=== PATIENT | male | born 1970 | race Caucasian/White ===

== ENCOUNTER → 2016-11-30 | Outpatient (CLI) | payer BC ==
[~2016-11-30] MED LIST: ALLO100T PO; LISI-461 PO; LISIPOW PO; PRLSR20 PO
--- NOTE | 2016-11-30 09:08 | DIAGNOSTIC IMAGING REPORT ---
ABDOMINAL WALL ULTRASOUND. CLINICAL HISTORY: Right lower quadrant pain. COMPARISON STUDY: No previous studies for comparison. FINDINGS: There is a 21 x 18 x 10 mm subcutaneous right lower quadrant abdominal wall mass which is isoechoic to adjacent fat. 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 IMPRESSION: 21 x 18 x 10 mm right lower quadrant subcutaneous mass, with imaging characteristics suggestive of a lipoma Electronically signed by: Camron Pinzon M.D. 11/30/2016 9:06 AM Dictated Date/Time: 11/30/2016 9:05 AM
== END | disposition home or self-care (01) ==
LOC: C.ULTRBC 08:41
PROVIDERS: ATTEND Nurse Practitioner Family
DX: R19.00 Intra-abdominal and pelvic swelling, mass and lump, unspecified site (principal)

== ENCOUNTER → 2016-12-04 | Outpatient (CLI) | payer BC ==
[~2016-12-04] MED LIST changes: +OPTIRAY 320 IV PRN
--- NOTE | 2016-12-04 17:16 | DIAGNOSTIC IMAGING REPORT ---
CT OF THE ABDOMEN AND PELVIS WITH CONTRAST CLINICAL HISTORY: Right lower quadrant pain. Leukocytosis. COMPARISON STUDY: Abdominal ultrasound July 11, 2013 and November 30, 2016. TECHNIQUE: Following IV administration of 115 mL of Optiray-320, axial images of the abdomen and pelvis were obtained from the lung bases to the proximal femurs. Images were reviewed in the axial, sagittal, and coronal planes. IV contrast was administered without complication. Oral contrast was administered. CT DOSE: 1050.10 mGycm FINDINGS: The liver, spleen, adrenal glands, kidneys and pancreas are normal. There is no biliary or pancreatic ductal dilatation. There is no hydronephrosis. There is no evidence for a bowel obstruction. The appendix is normal. No ascites is present. There is no lymphadenopathy. There are no suspicious skeletal lesions. IMPRESSION: No acute process within the abdomen or pelvis. Normal appendix. Electronically signed by: Samuel Ahn M.D. 12/04/2016 5:14 PM Dictated Date/Time: 12/04/2016 5:10 PM
== END | disposition home or self-care (01) ==
LOC: C.CTS 14:13
PROVIDERS: ATTEND Nurse Practitioner Family
DX: R10.31 Right lower quadrant pain (principal); D72.829 Elevated white blood cell count, unspecified

== ENCOUNTER 2016-12-29 00:07 | Emergency (ER) | payer BC ==
[~2016-12-29] VITALS: Ht 172.7 cm; Wt 105.3 kg
[~2016-12-29 00:07] MED LIST changes: -ALLO100T PO; -LISI-461 PO; -OPTIRAY 320 IV PRN; -PRLSR20 PO
[2016-12-29 00:18] VITALS: TEMP 36.5; Ht 172.7 cm; Wt 105.3 kg
[2016-12-29 00:25] VITALS: O2SAT 96
[2016-12-29] MEDS ORDERED: SODIUM CHLORIDE 0.9% 1000ML 1,000 ML IV ONE (00:45)
[2016-12-29 00:46] LABS: BASO % 0.4 %; BASO ABS # 0.04 K/uL (0-0.2); COMPLETE YES; EOS % 2.1 %; IG% 0.4 %; LYMPH % 22.1 %; LYMPH ABS # 2.04 K/uL (1.2-3.4); MEAN CORPUSCULAR HGB CONC 32.6 g/dl (32-36); MEAN PLATELET VOLUME 10.8 fL (7.4-10.4); MONO % 6.9 %; NEUT % 68.1 %; PLATELET COUNT 223 K/uL (130-400); RED BLOOD COUNT 5.35 M/uL (4.7-6.1); WHITE BLOOD COUNT 9.23 K/uL (4.8-10.8)
[2016-12-29 01:04] LABS: PARTIAL THROMBOPLASTIN RATIO 1.1; PROTHROMBIN TIME (PATIENT) 10.2 SECONDS (9.0-12.0)
[2016-12-29 01:10] LABS: BUN/CREATININE RATIO 11.4 (10-20); CALCIUM 8.7 mg/dl (8.5-10.1); CREATININE 1.1 mg/dl (0.60-1.40); MAGNESIUM 2.2 mg/dl (1.8-2.4); POTASSIUM 3.5 mmol/L (3.5-5.1)
[2016-12-29] MEDS ORDERED: LISI-461 PO (01:19)
[2016-12-29] MEDS ORDERED: PRLSR20 PO (01:19)
[2016-12-29] MEDS ORDERED: ALLO100T PO (01:19)
[2016-12-29 01:21] LABS: ALB/GLOB RATIO 1.1 (0.9-2); THYROID STIMULATING HORMONE 2.97 uIu/ml (0.300-4.500)
[2016-12-29 01:31] LABS: URINE APPEARANCE CLEAR (CLEAR); URINE BILIRUBIN NEG (NEG); URINE COLOR YELLOW; URINE NITRITE NEG (NEG); URINE SPECIFIC GRAVITY 1.012 (1.000-1.030); UROBILINOGEN POS (NEG); ZZUR CULT IF INDIC CLEAN CATCH NO
[2016-12-29 01:33] LABS: MANUAL MICROSCOPIC REQUIRED? NO; REVIEW REQ? NO
[2016-12-29 01:35] LABS: LYME DISEASE AB IGG NEG (NEG); LYME DISEASE AB IGM NEG (NEG)
[2016-12-29 03:31] VITALS: BP 121/76
[2016-12-29 03:36] VITALS: PULSE 67; O2SAT 96
--- NOTE | 2016-12-29 07:29 | DIAGNOSTIC IMAGING REPORT ---
TWO VIEW CHEST CLINICAL HISTORY: Palpitations. Hypertension. FINDINGS: PA and lateral chest radiographs are compared to study dated 10/22/2014 and correlated with chest CT dated 10/30/2014. The heart is top normal for projection. The mediastinal contour is within normal limits. There is mild chronic elevation of the right hemidiaphragm. No airspace consolidation or pleural effusion is identified. There is no pneumothorax. The bony thorax appears intact. IMPRESSION: No active disease in the chest. Electronically signed by: Alessio Haines M.D. 12/29/2016 7:27 AM Dictated Date/Time: 12/29/2016 7:26 AM
--- NOTE | 2016-12-30 00:14 | EMERGENCY ROOM VISIT NOTE ---
History First contact with patient: 00:22 Chief Complaint: HYPERTENSION Stated Complaint: HBP,ELEVATED PULSE History of Present Illness The patient is a 46 year old male who presents to the Emergency Room with complaints of palpitations that began when he tried to lay down for sleep tonight. The patient states that he has had similar episodes twice in the past 3 nights. He checked his blood pressure at home and it was 150/100. He states that his pulse rate was elevated in the 110s. The patient did not have chest pain, chest tightness, or shortness of breath with these events. He states that his episode tonight occurred about 2 hours ago and lasted for about 30 minutes. He does not have a history of cardiac disease. He is not diabetic. He rates his current discomfort a /10. Review of Systems More than 10 systems were reviewed and otherwise negative with the exception of history of present illness. 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 NKA (Allergy, Unknown, 03/11/04) Physical Exam Vital Signs Date Time Temp Pulse Resp B/P Pulse Ox O2 Delivery O2 Flow Rate FiO2 12/29/16 03:36 67 24 96 12/29/16 03:31 121/76 12/29/16 03:06 68 17 95 12/29/16 03:01 129/75 12/29/16 02:36 67 19 96 12/29/16 02:31 126/78 12/29/16 02:06 71 18 96 12/29/16 02:01 130/78 12/29/16 01:36 72 21 97 12/29/16 01:31 127/86 12/29/16 01:01 124/85 12/29/16 00:37 75 97 12/29/16 00:32 83 12/29/16 00:31 139/100 12/29/16 00:29 146/91 12/29/16 00:25 96 Room Air 12/29/16 00:18 36.5 86 18 152/97 100 Room Air Pain Rating (0-10): 0 Physical Exam VITALS: Vitals are noted on the nurse's note and reviewed by myself. Vital signs stable. GENERAL: Well-developed, well-nourished, white male, who is in no acute distress and resting comfortably. Patient is cooperative with the examination. HEAD: Normocephalic atraumatic. EARS: External ear normal. External auditory canals clear, tympanic membranes pearly lu without erythema or effusion bilaterally. EYES: Pupils equal round and reactive to light and accommodation. Conjunctivae without injection, sclerae without icterus. Extraocular movements intact. NOSE: Patent, turbinates without inflammation or discharge. MOUTH: Mucous membranes moist. Tonsils are not enlarged. Pharynx without erythema, blood, or exudate. Uvula midline. Airway patent. NECK: Supple without nuchal rigidity. No lymphadenopathy. No thyromegaly. Cervical spine is nontender. HEART: Regular rate and rhythm without murmurs gallops or rubs. LUNGS: Clear to auscultation bilaterally without wheezes, rales or rhonchi. No retractions or accessory muscle use. Medical Decision & Procedures ER Provider Diagnostic Interpretation: TWO VIEW CHEST CLINICAL HISTORY: Palpitations. Hypertension. FINDINGS: PA and lateral chest radiographs are compared to study dated 10/22/2014 and correlated with chest CT dated 10/30/2014. The heart is top normal for projection. The mediastinal contour is within normal limits. There is mild chronic elevation of the right hemidiaphragm. No airspace consolidation or pleural effusion is identified. There is no pneumothorax. The bony thorax appears intact. IMPRESSION: No active disease in the chest. Laboratory Results 12/29/16 00:30 Red Blood Count 5.35, Mean Corpuscular Volume 86.0, Mean Corpuscular Hemoglobin 28.0, Mean Corpuscular Hemoglobin Concent 32.6, Mean Platelet Volume 10.8, Neutrophils (%) (Auto) 68.1, Lymphocytes (%) (Auto) 22.1, Monocytes (%) (Auto) 6.9, Eosinophils (%) (Auto) 2.1, Basophils (%) (Auto) 0.4, Neutrophils # (Auto) 6.28, Lymphocytes # (Auto) 2.04, Monocytes # (Auto) 0.64, Eosinophils # (Auto) 0.19, Basophils # (Auto) 0.04 12/29/16 00:30 Test 12/29/16 00:30 12/29/16 00:39 12/29/16 01:15 White Blood Count 9.23 K/uL (4.8-10.8) Red Blood Count 5.35 M/uL (4.7-6.1) Hemoglobin 15.0 g/dL (14.0-18.0) Hematocrit 46.0 % (42-52) Mean Corpuscular Volume 86.0 fL (80-100) Mean Corpuscular Hemoglobin 28.0 pg (25-34) Mean Corpuscular Hemoglobin Concent 32.6 g/dl (32-36) Platelet Count 223 K/uL (130-400) Mean Platelet Volume 10.8 fL (7.4-10.4) Neutrophils (%) (Auto) 68.1 % Lymphocytes (%) (Auto) 22.1 % Monocytes (%) (Auto) 6.9 % Eosinophils (%) (Auto) 2.1 % Basophils (%) (Auto) 0.4 % Neutrophils # (Auto) 6.28 K/uL (1.4-6.5) Lymphocytes # (Auto) 2.04 K/uL (1.2-3.4) Monocytes # (Auto) 0.64 K/uL (0.11-0.59) Eosinophils # (Auto) 0.19 K/uL (0-0.5) Basophils # (Auto) 0.04 K/uL (0-0.2) RDW Standard Deviation 41.4 fL (36.4-46.3) RDW Coefficient of Variation 13.1 % (11.5-14.5) Immature Granulocyte % (Auto) 0.4 % Immature Granulocyte # (Auto) 0.04 K/uL (0.00-0.02) Prothrombin Time 10.2 SECONDS (9.0-12.0) Prothromb Time International Ratio 1.0 (0.9-1.1) Activated Partial Thromboplast Time 27.5 SECONDS (21.0-31.0) Partial Thromboplastin Ratio 1.1 Anion Gap 8.0 mmol/L (3-11) Est Creatinine Clear Calc Drug Dose 100.8 ml/min Estimated GFR () 94.1 Estimated GFR (Non- 81.2 BUN/Creatinine Ratio 11.4 (10-20) Calcium Level 8.7 mg/dl (8.5-10.1) Magnesium Level 2.2 mg/dl (1.8-2.4) Total Bilirubin 0.6 mg/dl (0.2-1) Aspartate Amino Transf (AST/SGOT) 11 U/L (15-37) Alanine Aminotransferase (ALT/SGPT) 23 U/L (12-78) Alkaline Phosphatase 63 U/L (45-117) Total Protein 7.2 gm/dl (6.4-8.2) Albumin 3.8 gm/dl (3.4-5.0) Globulin 3.4 gm/dl (2.5-4.0) Albumin/Globulin Ratio 1.1 (0.9-2) Thyroid Stimulating Hormone (TSH) 2.970 uIu/ml (0.300-4.500) Lyme Disease IgG Antibody NEG (NEG) Lyme Disease IgM Antibody NEG (NEG) Bedside D-Dimer 226 ng/mlFEU (0-450) Bedside Troponin I 0.000 ng/ml (0-0.045) Urine Color YELLOW Urine Appearance CLEAR (CLEAR) Urine pH 6.0 (4.5-7.5) Urine Specific [place] 1.012 (1.000-1.030) Urine Protein NEG (NEG) Urine Glucose (UA) NEG (NEG) Urine Ketones NEG (NEG) Urine Occult Blood NEG (NEG) Urine Nitrite NEG (NEG) Urine Bilirubin NEG (NEG) Urine Urobilinogen POS (NEG) Urine Leukocyte Esterase NEG (NEG) Medications Administered Medications (Trade) Dose Ordered Sig/Gamaliel Route Start Time Stop Time Status Last Admin Dose Admin Sodium Chloride (Nss 1000ml) 1,000 ml @ 999 mls/hr Q1H1M ONCE IV 12/29/16 00:45 12/29/16 01:45 DC 12/29/16 00:44 999 MLS/HR ECG Change: Normal sinus rhythm @79bpm Normal ECG When compared with ECG of 02-JAN-2005 20:17, No significant change was found Confirmed by JOSE GOINS ([id number]) on 12/29/2016 1:06:01 PM ED Course Physical exam and history were performed. Nursing notes and EMR were reviewed. Patient appears to have palpitations to the last 3 evenings when trying to go to bed. The patient does not appear toxic on examination. IV access was established and labs were obtained. EKG is as above. Chest x-ray was performed. The patient was placed on the vehicle monitor technician. The patient's blood work is as above and was reviewed. He does not have the sequelae elevated white blood cell count from this anemia, bandemia, or significant electrolyte imbalance. Lipase and transaminases are nondiagnostic. Troponin and d-dimer 1 are both negative. Chest x-ray does not show acute findings. Urine is without evidence of infection and the patient remained in normal sinus rhythm on the vehicle monitor technician. Overall the patient was reevaluated multiple times with course of his stay. He remained in stable condition without deterioration of his symptoms. I discussed options of care with patient, and overall he appears stable for discharge home. His symptoms of palpitations may require outpatient Holter or event monitoring in the future. This can be facilitated through his primary care physician or specialist. The patient was certainly invited back to the ER with any new, worsening, or concerning symptoms. He was pleased with this plan and voiced understanding. He rated his discomfort a 0/10 at the time of departure. The chart was completed utilizing [employer] Speech Voice Recognition Software. Grammatical errors, random word insertions, pronoun errors, and incomplete sentences are an occasional consequence of this system due to software limitations, ambient noise, and hardware issues. Any formal questions or concerns about the content, text, or information contained within the body of this dictation should be directly addressed to the provider for clarification. . Medical Decision Differential diagnosis includes, but is not limited to: Myocardial infarction, dysrhythmia, pericarditis, pneumothorax, aortic aneurysm/dissection, DVT/PE, anxiety, GERD, PUD, electrolyte imbalance, thyroid disorder, pneumonia, bronchitis, pancreatitis, and others Impression Primary Impression: Intermittent palpitations Departure Information Dispostion Home / Self-Care Condition [employer] HOME CARE DOCUMENTATION FORM, IMPORTANT VISIT INFORMATION Patient Instructions My [facility] Additional Instructions You were seen and evaluated today on an emergency basis only. This is not a substitute for, or an effort to provide, complete comprehensive medical care. It is not possible to recognize and treat all injuries or illnesses in a single emergency department visit. For this reason it is recommended that you followup with your primary care physician's office this week for ongoing care and evaluation. Call in the morning to schedule appointment. Let them know you were seen in the emergency department. Drink plenty fluids and remain well hydrated. Avoid substances such as caffeine, nicotine, and alcohol as these can cause these symptoms do occur. You are welcome to return to the emergency department anytime with new, worsening, or concerning symptoms.
== END 2016-12-29 03:50 | disposition home or self-care (01) ==
LOC: C.EDB 00:08 → C.EDA 03:50
DX: R00.2 Palpitations (principal); K21.9 Gastro-esophageal reflux disease without esophagitis; Z80.9 Family history of malignant neoplasm, unspecified; Z82.49 Family history of ischemic heart disease and other diseases of the circulatory system; Z79.899 Other long term (current) drug therapy

== ENCOUNTER 2021-01-26 11:00 | Inpatient (IN) ==
[2021-01-26] MEDS ORDERED: SODIUM CHLORIDE 0.9% 1000ML 1,000 ML IV ONE ×2 (12:22→14:05)
[2021-01-26] MEDS ORDERED: ONDANSETRON INJ 2 MG/ML 2 ML VIAL IV STA (12:22)
[2021-01-26 12:37] LABS: Basophils # (auto) 0.02 K/uL (0-0.2); Basophils % (auto) 0.1 %; Eosinophils # (auto) 0.05 K/uL (0-0.5); Eosinophils % (auto) 0.3 %; Hematocrit (blood only) 45.3 % (42-52); Hemoglobin 15.2 g/dL (14.0-18.0); Immature Granulocytes # (auto) 0.08 K/uL (0.00-0.02); Immature Granulocytes % (auto) 0.4 %; Lymphocytes # (auto) 1.22 K/uL (1.2-3.4); Lymphocytes % (auto) 6.7 %; Mean Corpuscular Hemoglobin 29.4 pg (25-34); Mean Corpuscular Hgb Conc 33.6 g/dL (32-36); Mean Corpuscular Volume 87.6 fL (80-100); Mean Platelet Volume 11.5 fL (7.4-10.4); Monocytes # (auto) 1.07 K/uL (0.11-0.59); Monocytes % (auto) 5.9 %; Neutrophils % (auto) 86.6 %; Platelet Count 277 K/uL (130-400); RDW Coefficient of Variation 13.2 % (11.5-14.5); RDW Standard Deviation 42.8 fL (36.4-46.3); Red Blood Count 5.17 M/uL (4.7-6.1); White Blood Count 18.14 K/uL (4.8-10.8)
[2021-01-26 12:48] LABS: Albumin Level 3.8 gm/dl (3.4-5.0); BUN Creatinine Ratio 12.3 (10-20); Calcium 9.4 mg/dl (8.5-10.1); Creatinine Clr Calc Pharmacy 128.5 ml/min; Est GFR (African American) 121.8 ml/min; Est GFR (Non-African American) 105.1 ml/min; Potassium 3.8 mmol/L (3.5-5.1)
[2021-01-26 12:50] LABS: Albumin Globulin Ratio 0.9 (0.9-2); Bilirubin,Total 1.4 mg/dl (0.2-1); Globulin 4.2 gm/dl (2.5-4.0)
[2021-01-26] MEDS ORDERED: OPTIRAY 320 100ml IV ONE (13:04)
--- NOTE | 2021-01-26 13:35 | CT Scan Report ---
ABDOMEN AND PELVIS CT WITH IV CONTRAST CT DOSE: 1433.85 mGy.cm HISTORY: Pt c/o diffuse abd pain TECHNIQUE: Multiaxial CT images of the abdomen and pelvis were performed following the use of intrave nous contrast. A dose lowering technique was utilized adhering to the principles of ALARA. COMPARISON STUDY: Abdomen and pelvis CT 12/04/2016. FINDINGS: The lung bases are clear. No pneumoperitoneum. No pneumatosis. Mild hepatic steatosis. The main portal vein is patent. The gallbladder, spleen, adrenal glands, pancreas, and kidneys are unrema rkable. No hydronephrosis. Mild bilateral perinephric edema. This is likely chronic. No retroperitone al lymphadenopathy. Normal caliber abdominal aorta. No pelvic free fluid. The bladder is unremarkable . A few colonic diverticula. No evidence for acute diverticulitis. Normal appendix. Dilated and fluid -filled stomach and small bowel to the level of the distal ileum where there is smooth tapering of th e bowel to the decompressed ileal loops. The distal ileal loops may be mildly thickened. This is best seen within the right lower quadrant on image 288. Therefore, these findings favor a bowel obstructi on possibly secondary to a nonspecific ileitis. IMPRESSION: 1. Dilated and fluid-filled loops of stomach and small bowel to the level of the ileum where there is smooth tapering at a few mildly thickened loops of ileum. This likely accounts for the transition po int of the small bowel obstruction. This may be secondary to an ileitis. This may represent an inflam matory infectious process. 2. Normal appendix. 3. Mild hepatic steatosis. ACT 112: Negative or not required by law. Electronically signed by: Adonay Bergeron M.D. 01/26/2021 1:34 PM
[2021-01-26 14:07] LABS: Appearance Urine Clear (Clear); Bilirubin Urine Negative (Negative); Blood Urine Negative (Negative); Color Urine Yellow; Glucose Urine UA Negative (Negative); Ketones Urine Trace (Negative); Leukocyte Esterase Urine Negative (Negative); Nitrite Urine Negative (Negative); Protein Urine Negative (Negative); Specific Gravity Urine 1.023 (1.000-1.030); Urobilinogen Urine Negative (Negative); pH Urine 7.5 (4.5-7.5)
[2021-01-26] MEDS ORDERED: PIPERACILL/TAZOBAC CONSULT ACTIVE PRN ×2 (14:43→16:56)
[2021-01-26] MEDS ORDERED: DAPTOmycin 500 MG in SYRINGE 0 ML IV ONE (14:43)
[2021-01-26] MEDS ORDERED: PIPERACILLIN/TAZOBACTAM 4.5 GM/120 ML BAG IV ONE (14:43)
[2021-01-26 15:18] LABS: C Reactive Protein 6.68 mg/dl (0-0.29)
[2021-01-26] MEDS ORDERED: LACTATED RINGER'S 1,000 ML IV SCH (15:30)
--- NOTE | 2021-01-26 15:33 | History & Physical Report ---
Date of Service January 26, 2021 Assessment & Plan (1) Leukocytosis: As per HPI- see heme onc workup from 2009 - Patient with neutrophil predominance- NLR- 15:1 - will start on Zosyn 3.375 GM IV q8 - Received 1 dose of Daptomycin in the EMD - Afebrile, negative lactate, CRP pending (2) SBO (small bowel obstruction): SBO no abdominal surgical history other than lipoma removal - With vomiting- lactate as above - CT abdomen /pelvis with IV contrast performed - ABDOMEN AND PELVIS CT WITH IV CONTRAST CT DOSE: 1433.85 mGy.cm 1. Dilated and fluid-filled loops of stomach and small bowel to the level of the ileum where there is smooth tapering at a few mildly thickened loops of ileum. This likely accounts for the transition point of the small bowel obstruction. This may be secondary to an ileitis. This may represent an inflammatory infectious process. 2. Normal appendix. 3. Mild hepatic steatosis - NGT to LIWS- awaiting post placement KUB - General Surgery Consult placed. - LR @ 125ml/hr - Hydromorphone for pain - Zofran for nausea - KUB in the morning Consult GI following acute SBO resolution (3) HTN (hypertension): Hold Lisinopril - Notify if SBP >160 for IV coverage (4) Obesity: BMI 38- cotninue to work through PCP for risk reductions History of Present Illness Primary Care Provider: BENEDICT Hedrick 50 YOM with past medical history of leukocytosis, myalgias, chronic abdominal pain, constipation, obesity and HTN, Gout. Patient reports that he has daily abdominal discomfort that will come and go in waves as sharp located to his bilateral upper quadrant. This is usually associated with some nausea and no vomiting. The patient endorses his last normal BM was probably last Wednesday [id number]. On he noticed that his abdomen discomfort was becoming more frequent and started with liquid stools. This calmed down a bit on Wednesday, he also started to get a little bit of his appetite back on Wednesday, so he attempted to eat dinner. Patient had increase in abdominal pain that progressed to nausea with vomiting at 2300 last night. He reports that he vomited three times last night, his reports this as brown with undigested food in it. No feculent smell or blood endorsed. In the ER the patient had a CT scan performed that indicated dilated and fluid filled loops of bowel with a transition point at the level of the ileum. Dr. Rodriguez from [facility] spoke with the General Surgeon Dr. Isabel, who requested Naso-Gastric tube decompression, bowel rest, NPO, IVF, broad spectrum antibiotics. He will be admitted to medical floor with the above, continue with the above. KUB in the morning. Lactate level pending. Patient endorses that he has had previous EGD and Colonoscopies performed with biopsies. No records for review. He also reports family history of this abdominal discomfort, constipation, diarrhea that was diagnosed as IBS. He has had his Leukocytosis worked up in the past with unequivocal STEPHANIE and viral panels and flow cytometry workups negative as well. Last GI review available from 2004 but unable to see results at this time. Allergies Allergy/AdvReac Type Severity Reaction Status Date / Time MILK,CATS Allergy Unknown SHORTNESS Uncoded 01/26/21 13:19 OF BREATH Home Medications Medication Instructions Recorded Confirmed Type allopurinol [Zyloprim] 200 mg PO QAM 01/26/21 01/26/21 History cholecalciferol (vitamin D3) 125 mcg PO QDD 01/26/21 01/26/21 History [Vitamin D3] lisinopril [Zestril] 10 mg PO QAM 01/26/21 01/26/21 History Past Med/Surg History Family History Father Coronary heart disease Diabetes Dyslipidemia Heart disease Stroke Irritable bowel Mother Coronary heart disease Diabetes Dyslipidemia Stroke Irritable bowel Other COPD (chronic obstructive pulmonary disease) Social History Smoking Status: Never smoker Second Hand Exposure: No; Do You Dip or Chew Tobacco: No; Tobacco Cessation Education Requested by Patient: No Hx Alcohol Use: Yes Hx Substance Use: No Preferred Language: Uzbek Communication Ability: Effective Painting Manager Required: No Beliefs That Will Affect Care: None Current Living Situation: Spouse Other Information That Helps Us Care for You: No Feels Safe at Home: Yes Safety Concerns: Feels Safe At This Time Assistive Devices: None Review of Systems Review of Systems: REVIEW OF SYSTEMS: Constitutional: No fever, sweats or chills Eyes: No diplopia, no worsening or blurred vision ENT: normal hearing, no trouble swallowing Respiratory: No cough, sputum, dyspnea at rest or on exertion Cardiovascular: No chest pain, tightness or palpitations Abdomen: (+) pain, nausea, vomiting, diarrhea and constipation, (-) blood or mucous stools Musculoskeletal: No joint pain, calf pain, swelling Neurologic: No weakness, numbness/tingling, or balance problems Psychiatric: No anxiety or depression Skin: No rash or itch Physical Exam Physical Exam: PHYSICAL EXAM: General: awake, alert, Head: Normocephalic, atraumatic ENT: PERRL, EOMI, no pharyngeal exudate, mucous membranes moist Neuro: AAO x 3, speech clear and appropriate, strength intact bilaterally 5/5, sensation intact and equal all extremities and dermatomes, no pronator drift Chest: equal rise and fall of the chest, no accessory muscle use, no heaves or thrills, Clear to auscultation, on room air, Cardiac: Regular rate and rhythm, telemetry reviewed, skin warm dry, cap refill <3 seconds, peripheral pules +2 no JVD, no murmur, no JVD, no edema GI: Very hypoactive bowel sounds in lower quadrant, distended, tympanic throughout, tender with deep palpation, no rebound, guarding, not firm : Spontaneously voiding, no pain, no CVA tenderness, Extremities: Normal inspection, no peripheral edema or erythema, calfs nontender to palpation Psych: Normal mood and affect Skin: no rash or erythema Results & Data Results & Data ([facility]) Vital Signs (Past 12 Hours) Vital Signs Temp Pulse Resp BP Pulse Ox 01/26/21 15:01 78 22 97 01/26/21 15:00 75 25 H 138/87 96 01/26/21 14:31 80 20 99 01/26/21 14:30 80 22 140/90 98 01/26/21 14:01 78 22 98 01/26/21 14:00 84 24 134/92 99 01/26/21 13:31 146/90 H 96 01/26/21 13:30 94 01/26/21 13:01 70 20 96 01/26/21 13:00 69 23 121/80 95 01/26/21 12:37 73 20 97 01/26/21 12:31 76 24 94 01/26/21 12:30 77 19 117/80 91 01/26/21 12:01 88 22 91 01/26/21 12:00 84 18 122/81 92 01/26/21 11:33 88 20 94 01/26/21 11:30 86 20 125/83 92 01/26/21 11:06 36.5 C 94 H 20 160/98 H 97 Laboratory Results Abnormal lab results 01/26/21 01/26/21 01/26/21 Range/Units 11:35 11:35 13:54 WBC 18.14 H (4.8-10.8) K/uL MPV 11.5 H (7.4-10.4) fL Neut # (Auto) 15.70 H (1.4-6.5) K/uL [place] # (Auto) 1.07 H (0.11-0.59) K/uL Immature Gran # (Auto) 0.08 H (0.00-0.02) K/uL Sodium 134 L (136-145) mmol/L Glucose 124 H (70-99) mg/dl Total Bilirubin 1.4 H (0.2-1) mg/dl C-Reactive Protein 6.68 H (0-0.29) mg/dl Globulin 4.2 H (2.5-4.0) gm/dl Lipase 69 L (73-393) U/L Urine Ketones Trace H (Negative) Diagnostic Findings Abdomen/Pelvis CT 01/26/21 12:[address] WITH IV CONTRAST CT DOSE: 1433.85 mGy.cm HISTORY: Pt c/o diffuse abd pain TECHNIQUE: Multiaxial CT images of the abdomen and pelvis were performed following the use of intravenous contrast. A dose lowering technique was utilized adhering to the principles of ALARA. COMPARISON STUDY: Abdomen and pelvis CT 12/04/2016. FINDINGS: The lung bases are clear. No pneumoperitoneum. No pneumatosis. Mild hepatic steatosis. The main portal vein is patent. The gallbladder, spleen, adrenal glands, pancreas, and kidneys are unremarkable. No hydronephrosis. Mild bilateral perinephric edema. This is likely chronic. No retroperitoneal lymphadenopathy. Normal caliber abdominal aorta. No pelvic free fluid. The bladder is unremarkable. A few colonic diverticula. No evidence for acute diverticulitis. Normal appendix. Dilated and fluid-filled stomach and small bowel to the level of the distal ileum where there is smooth tapering of the bowel to the decompressed ileal loops. The distal ileal loops may be mildly thickened. This is best seen within the right lower quadrant on image 288. Therefore, these findings favor a bowel obstruction possibly secondary to a nonspecific ileitis. IMPRESSION: 1. Dilated and fluid-filled loops of stomach and small bowel to the level of the ileum where there is smooth tapering at a few mildly thickened loops of ileum. This likely accounts for the transition point of the small bowel obstruction. This may be secondary to an ileitis. This may represent an inflammatory infectious process. 2. Normal appendix. 3. Mild hepatic steatosis. Electronically signed by: Adonay Bergeron M.D. 01/26/2021 1:34 PM Medications Administered Discontinued Medications Sodium Chloride (Nss 1000ml) 1,000 mls @ 999 mls/hr IV .Q1H1M ONE Stop: 01/26/21 13:22 Last Infusion: 01/26/21 13:32 Dose: 0 mls/hr Documented by: [id number] Admin: 01/26/21 12:31 Dose: 999 mls/hr Documented by: [id number] Sodium Chloride (Nss 1000ml) 1,000 mls @ 999 mls/hr IV .Q1H1M ONE Stop: 01/26/21 15:05 Last Infusion: 01/26/21 15:06 Dose: 0 mls/hr Documented by: [id number] Admin: 01/26/21 14:05 Dose: 999 mls/hr Documented by: [id number] Piperacillin Sod/Tazobactam Sod (Zosyn) 4.5 gm in 120 mls @ 240 mls/hr IV NOW ONE Stop: 01/26/21 15:12 Last Admin: 01/26/21 15:16 Dose: 240 mls/hr Documented by: [id number] Daptomycin 500 mg/ Syringe 10 mls @ 5 mls/min IV NOW ONE; Protocol Stop: 01/26/21 14:44 Last Admin: 01/26/21 15:16 Dose: 5 mls/min Documented by: [id number] Ioversol (Optiray 320 100ml) 93 ml IV ONCE ONE Stop: 01/26/21 13:05 Last Admin: 01/26/21 13:04 Dose: 93 ml Documented by: [id number] Ondansetron HCl (Ondansetron Inj 2 Mg/Ml 2 Ml Vial) 4 mg IV NOW STA Stop: 01/26/21 12:23 Last Admin: 01/26/21 12:32 Dose: 4 mg Documented by: [id number] Code Status & VTE Plan Code Status CODE: FULL VTE: SCD's, Heparin 5000 q12, VTE Prophylaxis Plan VTE Prophylaxis will be ordered: Yes Supervising Physician Co-Signing Physician Notes Attending Attestation - Pt seen/examined, chart reviewed, care plan d/w BENEDICT Bernardo. I agree w/ the james components of his documentation. 50yo male with obesity, chronic leukocytosis with previous heme/onc work-up, ?IBS, HTN - presenting with SBO. CT imaging suggests the transition point is in the ileum. Last colonoscopy was in [address] Torres [facility]. Ileum normal at that time. Denies any recent weight loss, BRBPR, mucous per rectum or GI intolerance to foods. However, he reports 20+ years of fluctuating diarrhea/constipation with cramps. PMH, PSH, allergies, meds, sochx, famhx - reviewed VSS, no fever gen - obese, mildly uncomfortable due to distension of abdomen mouth - MM dry heart - RRR, s1 s2 lungs - CTA b/l abd - marked distension, mild generalized tenderness, BS+, tympanic to percussion ext - no edema labs reviewed -- WBC 18 mag/k wnl CT abd/pelvis - reviewed A/P: SBO 2nd to abnormalities in the ileum. ?ileitis on CT? Agree w/ NG tube for decompression, IVF, IV pain meds, anti-emetics, serial labs. Gen surg consultation. Strongly consider GI consultation. differential for ileum abnormality - crohn's?? intestinal lymphoma? other? leukocytosis - chronic, but certainly the acute SBO will contribute. Heriberto Cruz MD PG Care Time/CCT Total # of Minutes Spent Total Time Spent with Patient: Total time spent is greater than 50% in coordination of care (as documented) at patient's floor/unit and/or counseling patient: Coding Level of Care Code 99637 Initial Inpt Care Lvl 2 Diagnoses Leukocytosis D72.829 Leukocytosis type: unspecified SBO (small bowel obstruction) K56.609 HTN (hypertension) I10 Hypertension type: unspecified Obesity E66.9 (1) Leukocytosis Leukocytosis type: unspecified Qualified Code(s): D72.829 - Elevated white blood cell count, unspecified (2) HTN (hypertension) Hypertension type: unspecified Qualified Code(s): I10 - Essential (primary) hypertension
[2021-01-26] MEDS ORDERED: ONDANSETRON INJ 2 MG/ML 2 ML VIAL IV PRN (16:56)
[2021-01-26] MEDS ORDERED: PIPERACILLIN/TAZOBACTAM 3.375 GM in DEXTROSE 5% 100 ML IV SCH (16:56)
[2021-01-26] MEDS: HYDROmorphone INJ 0.5 MG/0.5 ML SYR IV PRN (18:13)
--- NOTE | 2021-01-26 18:54 | XRay Report ---
KUB HISTORY: evaluate NGT placement, Nurse to call COMPARISON: Abdomen and pelvis CT 01/26/2021. FINDINGS: Mildly dilated gas-filled loops of small bowel and stomach are again noted consistent with the patient's small bowel obstruction. Nasogastric tube terminates at the distal esophagus. This shou ld be advanced by approximately 10 cm. No renal calculi. No ureteral calculi. No pneumoperitoneum or pneumatosis. IMPRESSION: The nasogastric tube terminates in the distal esophagus and should be advanced by approximately 10 cm . This finding was called/faxed to the referring physician following dictation. ACT 112: Negative or not required by law. Electronically signed by: Adonay Bergeron M.D. 01/26/2021 6:53 PM
--- NOTE | 2021-01-26 18:56 | Emergency Department Note ---
Impression & Plan SBO (small bowel obstruction), Leukocytosis, Abdominal pain ED Provider Note NAME: ANN MARIE FOSTER AGE: 50 SEX: M : 1970 ARRIVES VIA: Walk-In INFORMANT: Patient, ED PROVIDER(S): Aaron Burr MD CHIEF COMPLAINT: abd pain, vomiting HPI: This 50-year-old male who has a history of small bowel obstructions who presents to the emergency department complaining of abdominal pain as well as vomiting that has been ongoing since . The patient reports any eating or drinking makes the pain worse. He reports nothing makes it better. He has not taken anything for the pain. He describes the pain as an aching sensation with radiation into the back. He denies any fevers or chills. ROS: See above HPI for pertinent positives & negatives. A total of 10 systems reviewed and were otherwise negative. PAST MEDICAL HISTORY: See Below PAST SURGICAL HISTORY: See Below FAMILY HISTORY: See Below SOCIAL HISTORY: See Below HOME MEDICATIONS: See Below ALLERGIES: See Below VITALS: See Below PHYSICAL EXAMINATION: VITAL SIGNS - Vital signs and nursing notes were reviewed. GENERAL - 50-year-old male appearing stated age who is in no acute distress. Communicates well with provider and answers questions appropriately. SKIN - Without rashes. HEAD - NC/AT. EYES - PERRL with EOMI bilaterally. Sclera anicteric. Palpebral conjunctiva pink and moist with no injection noted. EARS - No deformities of external structures noted on gross examination bilaterally. NOSE - Midline and without cyanosis. No epistaxis or purulent drainage noted. Septum midline without deviation or septal hematoma noted. MOUTH/OROPHARYNX - Without perioral cyanosis. Buccal mucosa pink and moist and without leukoplakia. Tongue midline with equal elevation of palate bilaterally. No tonsillar hypertrophy, erythema, or exudates noted. NECK - Neck with FROM. Supple to palpation. No nuchal rigidity. LUNGS - Chest wall symmetric without accessory muscle use, intercostals retractions, or central cyanosis. Normal vesicular breath sounds CTA B/L. No wheezes, rales, or rhonchi appreciated. CARDIAC - RRR with S1/S2. No murmur, rubs, or gallops appreciated. ABDOMEN - Abdominal contour without pulsations or visible masses. BS normoactive all four quadrants. No tenderness, palpable masses, hep atosplenomegaly, or ascites noted. EXTREMITIES - No clubbing or peripheral cyanosis. No pretibial edema present. +3/5 radial, posterior tibial, and dorsalis pedis pulses palpated throughout. +5/5 strength noted in UE/LE bilaterally. NEUROLOGIC - Cranial nerves II through XII grossly intact. Sensory intact to light touch throughout. Patellar reflexes +2/4. PSYCH - A&Ox3 and cooperates fully with examiner. Pt is very pleasant and interacts well with examiner. MEDICAL DECISION MAKING: Patient was seen and evaluated as above in room B7. Review was performed of nursing notes and vital signs. I did review pertinent previous visits and patient history. After obtaining a thorough history and physical examination the above work up was performed. This a 50-year-old male who presents emergency department complaining of abdominal pain. The patient does have an elevation in his white blood cell count which I suspect is from vomiting. CAT scan is concerning for small bowel obstruction. I did recommend an NG tube for the patient. I did discuss the case with the surgery service who asked that the patient be admitted to the medicine service. He was started on broad-spectrum antibiotics. An order was placed for continuous cardiac monitoring. The monitor shows a rate of 58 with Normal Sinus rhythm. The patient was evaluated during a period of high volume and high acuity during the global COVID-19 pandemic, and that diagnosis was suspected/considered upon their initial presentation. Their evaluation, treatment and testing was consistent with current guidelines for patients who present with complaints or symptoms that may be related to COVID-19. Patient was seen while provider was wearing PPE. Triage Nursing notes reviewed. Prior medical records reviewed Vital Signs: reviewed and remarkable for no significant abnormalities Differential diagnosis: Appendicitis, testicular torsion, infections, diverticulitis, UTI, obstruction, mesenteric ischemia, aortic pathology, inflammatory bowel disease, renal colic, PUD, pancreatitis, biliary pathology, hernia, volvulus, constipation, as well as other pathologies. ER treatment provided: See below Diagnostics interpreted by me: ECG: Normal sinus rhythm normal EKG no ST elevation or depression QTC is 459 ventricular rate of 74 EKG is compared to 12/29/2016 no significant changes found. Laboratory studies: As stated above and show below. Imaging studies: See below Consultation(s): Gen Surgery Int Medicine Past Med/Surg History Family History Father Coronary heart disease Diabetes Dyslipidemia Heart disease Stroke Irritable bowel Mother Coronary heart disease Diabetes Dyslipidemia Stroke Irritable bowel Other COPD (chronic obstructive pulmonary disease) Social History Smoking Status: Never smoker Second Hand Exposure: No; Do You Dip or Chew Tobacco: No; Tobacco Cessation Education Requested by Patient: No Hx Alcohol Use: Yes Hx Substance Use: No Preferred Language: Mohawk Communication Ability: Effective Music Librarian Required: No Beliefs That Will Affect Care: None Current Living Situation: Spouse Other Information That Helps Us Care for You: No Feels Safe at Home: Yes Safety Concerns: Feels Safe At This Time Assistive Devices: None Allergies Allergies Allergy/AdvReac Type Severity Reaction Status Date / Time MILK,CATS Allergy Unknown SHORTNESS Uncoded 01/26/21 13:19 OF BREATH Home Meds Home Medications Medication Instructions Recorded Confirmed allopurinol [Zyloprim] 200 mg PO QAM 01/26/21 01/26/21 cholecalciferol (vitamin D3) 125 mcg PO QDD 01/26/21 01/26/21 [Vitamin D3] lisinopril [Zestril] 10 mg PO QAM 01/26/21 01/26/21 Results & Data (ED) Vital Signs Vital Signs - 24 hr 01/26/21 11:06 01/26/21 11:30 01/26/21 11:33 Temperature 36.5 C Temperature Source Temporal Artery Scan Pulse Rate 94 H 86 88 Pulse Rate from SpO2 Sensor 87 89 Pulse Rhythm Respiratory Rate 20 20 20 Respiratory Effort / Characteristics Non-Labored Respiratory Depth Normal Blood Pressure 160/98 H 125/83 Blood Pressure Mean 118 97 Pulse Oximetry 97 92 94 Oxygen Delivery Method Room Air Room Air Room Air Sepsis Recent Fever Within 48 Hours No Sepsis New/Unexplained Change in Mental Status N/A Sepsis Action Taken by Nursing No Action Required 01/26/21 12:00 01/26/21 12:01 01/26/21 12:30 Temperature Temperature Source Pulse Rate 84 88 77 Pulse Rate from SpO2 Sensor 84 87 77 Pulse Rhythm Respiratory Rate 18 22 19 Respiratory Effort / Characteristics Respiratory Depth Blood Pressure 122/81 117/80 Blood Pressure Mean 94 92 Pulse Oximetry 92 91 91 Oxygen Delivery Method Room Air Room Air Sepsis Recent Fever Within 48 Hours Sepsis New/Unexplained Change in Mental Status Sepsis Action Taken by Nursing 01/26/21 12:31 01/26/21 12:37 01/26/21 13:00 Temperature Temperature Source Pulse Rate 76 73 69 Pulse Rate from SpO2 Sensor 77 69 Pulse Rhythm Regular Respiratory Rate 24 20 23 Respiratory Effort / Characteristics Respiratory Depth Blood Pressure 121/80 Blood Pressure Mean 93 Pulse Oximetry 94 97 95 Oxygen Delivery Method Room Air Sepsis Recent Fever Within 48 Hours Sepsis New/Unexplained Change in Mental Status Sepsis Action Taken by Nursing 01/26/21 13:01 01/26/21 13:30 01/26/21 13:31 Temperature Temperature Source Pulse Rate 70 Pulse Rate from SpO2 Sensor 71 82 81 Pulse Rhythm Respiratory Rate 20 Respiratory Effort / Characteristics Respiratory Depth Blood Pressure 146/90 H Blood Pressure Mean 108 Pulse Oximetry 96 94 96 Oxygen Delivery Method Sepsis Recent Fever Within 48 Hours Sepsis New/Unexplained Change in Mental Status Sepsis Action Taken by Nursing 01/26/21 14:00 01/26/21 14:01 01/26/21 14:30 Temperature Temperature Source Pulse Rate 84 78 80 Pulse Rate from SpO2 Sensor 83 79 80 Pulse Rhythm Respiratory Rate 24 22 22 Respiratory Effort / Characteristics Respiratory Depth Blood Pressure 134/92 140/90 Blood Pressure Mean 106 106 Pulse Oximetry 99 98 98 Oxygen Delivery Method Room Air Sepsis Recent Fever Within 48 Hours Sepsis New/Unexplained Change in Mental Status Sepsis Action Taken by Nursing 01/26/21 14:31 01/26/21 15:00 01/26/21 15:01 Temperature Temperature Source Pulse Rate 80 75 78 Pulse Rate from SpO2 Sensor 80 77 78 Pulse Rhythm Respiratory Rate 20 25 H 22 Respiratory Effort / Characteristics Respiratory Depth Blood Pressure 138/87 Blood Pressure Mean 104 Pulse Oximetry 99 96 97 Oxygen Delivery Method Room Air Room Air Room Air Sepsis Recent Fever Within 48 Hours Sepsis New/Unexplained Change in Mental Status Sepsis Action Taken by Nursing Laboratory Data Result diagrams: 01/29/21 05:56 01/29/21 05:56 Lab Results 01/26/21 01/26/21 01/26/21 Range/Units 11:35 11:35 13:54 WBC 18.14 H (4.8-10.8) K/uL RBC 5.17 (4.7-6.1) M/uL Hgb 15.2 (14.0-18.0) g/dL Hct 45.3 (42-52) % MCV 87.6 (80-100) fL MCH 29.4 (25-34) pg MCHC 33.6 (32-36) g/dL RDW Std Deviation 42.8 (36.4-46.3) fL RDW Coeff of Harriet 13.2 (11.5-14.5) % Plt Count 277 (130-400) K/uL MPV 11.5 H (7.4-10.4) fL Immature Gran % (Auto) 0.4 % Neut % (Auto) 86.6 % Lymph % (Auto) 6.7 % [place] % (Auto) 5.9 % Eos % (Auto) 0.3 % Baso % (Auto) 0.1 % Neut # (Auto) 15.70 H (1.4-6.5) K/uL Lymph # (Auto) 1.22 (1.2-3.4) K/uL [place] # (Auto) 1.07 H (0.11-0.59) K/uL Eos # (Auto) 0.05 (0-0.5) K/uL Baso # (Auto) 0.02 (0-0.2) K/uL Immature Gran # (Auto) 0.08 H (0.00-0.02) K/uL Sodium 134 L (136-145) mmol/L Potassium 3.8 (3.5-5.1) mmol/L Chloride 101 (98-107) mmol/L Carbon Dioxide 28 (21-32) mmol/L Anion Gap 5.0 (3-11) BUN 10 (7-18) mg/dl Creatinine 0.81 (0.6-1.4) mg/dl Est Cr Clr Drug Dosing 128.5 ml/min Est GFR ( Amer) 121.8 ml/min Est GFR (Non-Af Amer) 105.1 ml/min BUN/Creatinine Ratio 12.3 (10-20) Glucose 124 H (70-99) mg/dl Lactate (0.4-2.0) mmol/L Calcium 9.4 (8.5-10.1) mg/dl Total Bilirubin 1.4 H (0.2-1) mg/dl AST 18 (15-37) U/L ALT 31 (12-78) U/L Alkaline Phosphatase 53 (45-117) U/L C-Reactive Protein 6.68 H (0-0.29) mg/dl Total Protein 8.0 (6.4-8.2) gm/dl Albumin 3.8 (3.4-5.0) gm/dl Globulin 4.2 H (2.5-4.0) gm/dl Albumin/Globulin Ratio 0.9 (0.9-2) Lipase 69 L (73-393) U/L Urine Color Yellow Urine Appearance Clear (Clear) Urine pH 7.5 (4.5-7.5) Ur Specific [place] 1.023 (1.000-1.030) Urine Protein Negative (Negative) Urine Glucose (UA) Negative (Negative) Urine Ketones Trace H (Negative) Urine Blood Negative (Negative) Urine Nitrite Negative (Negative) Urine Bilirubin Negative (Negative) Urine Urobilinogen Negative (Negative) Ur Leukocyte Esterase Negative (Negative) COVID-19 Eval Order SARS-CoV-2 (PCR) (Negative) 01/26/21 01/26/21 01/26/21 Range/Units 13:55 13:55 15:10 WBC (4.8-10.8) K/uL RBC (4.7-6.1) M/uL Hgb (14.0-18.0) g/dL Hct (42-52) % MCV (80-100) fL MCH (25-34) pg MCHC (32-36) g/dL RDW Std Deviation (36.4-46.3) fL RDW Coeff of Harriet (11.5-14.5) % Plt Count (130-400) K/uL MPV (7.4-10.4) fL Immature Gran % (Auto) % Neut % (Auto) % Lymph % (Auto) % [place] % (Auto) % Eos % (Auto) % Baso % (Auto) % Neut # (Auto) (1.4-6.5) K/uL Lymph # (Auto) (1.2-3.4) K/uL [place] # (Auto) (0.11-0.59) K/uL Eos # (Auto) (0-0.5) K/uL Baso # (Auto) (0-0.2) K/uL Immature Gran # (Auto) (0.00-0.02) K/uL Sodium (136-145) mmol/L Potassium (3.5-5.1) mmol/L Chloride (98-107) mmol/L Carbon Dioxide (21-32) mmol/L Anion Gap (3-11) BUN (7-18) mg/dl Creatinine (0.6-1.4) mg/dl Est Cr Clr Drug Dosing ml/min Est GFR ( Amer) ml/min Est GFR (Non-Af Amer) ml/min BUN/Creatinine Ratio (10-20) Glucose (70-99) mg/dl Lactate 1.1 (0.4-2.0) mmol/L Calcium (8.5-10.1) mg/dl Total Bilirubin (0.2-1) mg/dl AST (15-37) U/L ALT (12-78) U/L Alkaline Phosphatase (45-117) U/L C-Reactive Protein (0-0.29) mg/dl Total Protein (6.4-8.2) gm/dl Albumin (3.4-5.0) gm/dl Globulin (2.5-4.0) gm/dl Albumin/Globulin Ratio (0.9-2) Lipase (73-393) U/L Urine Color Urine Appearance (Clear) Urine pH (4.5-7.5) Ur Specific [place] (1.000-1.030) Urine Protein (Negative) Urine Glucose (UA) (Negative) Urine Ketones (Negative) Urine Blood (Negative) Urine Nitrite (Negative) Urine Bilirubin (Negative) Urine Urobilinogen (Negative) Ur Leukocyte Esterase (Negative) COVID-19 Eval Order Covid19 at [facility] SARS-CoV-2 (PCR) NEGATIVE (Negative) Administered Medications Potassium Chloride/Dextrose/Sod Cl (D5w And 1/2nss + 20meq Kcl) 20 meq in 1,000 mls @ 150 mls/hr IV .Q6H40M [facility] Stop: 02/26/21 15:59 Last Admin: 01/29/21 07:43 Dose: 150 mls/hr Documented by: [id number] Infusion: 01/29/21 07:43 Dose: 150 mls/hr Documented by: [id number] Admin: 01/29/21 01:29 Dose: 150 mls/hr Documented by: [id number] Infusion: 01/29/21 01:17 Dose: 150 mls/hr Documented by: [id number] Admin: 01/28/21 18:36 Dose: 150 mls/hr Documented by: [id number] Infusion: 01/28/21 18:36 Dose: 125 mls/hr Documented by: [id number] Admin: 01/28/21 15:29 Dose: 125 mls/hr Documented by: [id number] Infusion: 01/28/21 11:49 Dose: 125 mls/hr Documented by: [id number] Admin: 01/28/21 08:08 Dose: 125 mls/hr Documented by: [id number] Infusion: 01/28/21 08:08 Dose: 125 mls/hr Documented by: [id number] Admin: 01/28/21 00:25 Dose: 125 mls/hr Documented by: [id number] Infusion: 01/28/21 00:14 Dose: 125 mls/hr Documented by: [id number] Admin: 01/27/21 16:14 Dose: 125 mls/hr Documented by: [id number] Methylprednisolone 20 mg/ (Syringe) 0.32 mls @ 1.5 mls/min IV BID FRANK Stop: 02/27/21 10:14 Last Admin: 01/29/21 07:43 Dose: 1.5 mls/min Documented by: [id number] Admin: 01/28/21 21:20 Dose: 1.5 mls/min Documented by: [id number] Admin: 01/28/21 11:49 Dose: 1.5 mls/min Documented by: [id number] Famotidine 20 mg/ Syringe 5 mls @ 2.5 mls/min IV Q24H FRANK Stop: 02/27/21 16:59 Last Admin: 01/28/21 16:50 Dose: 2.5 mls/min Documented by: [id number] Discontinued Medications Acetaminophen (Acetaminophen 1000 Mg/100 Ml Iv) 1,000 mg IV ONE STA Stop: 01/29/21 12:18 Last Admin: 01/29/21 12:30 Dose: 1,000 mg Documented by: [id number] Heparin Sodium (Porcine) (Heparin Sod 5,000 Unit/0.5 Ml Vial) 5,000 units SQ Q12 FRANK Stop: 02/25/21 20:59 Last Admin: 01/26/21 20:23 Dose: 5,000 units Documented by: [id number] Heparin Sodium (Porcine) (Heparin Sod 5,000 Unit/0.5 Ml Vial) 7,500 units SQ TID FRANK Stop: 02/26/21 08:59 Last Admin: 01/28/21 15:00 Dose: 7,500 units Documented by: [id number] Admin: 01/28/21 08:35 Dose: 7,500 units Documented by: [id number] Admin: 01/27/21 19:53 Dose: 7,500 units Documented by: [id number] Admin: 01/27/21 15:48 Dose: 7,500 units Documented by: [id number] Admin: 01/27/21 11:23 Dose: 7,500 units Documented by: [id number] Hydromorphone HCl (Hydromorphone Inj 0.5 Mg/0.5 Ml Syr) 0.5 mg IV Q4 PRN PRN Reason: Pain Stop: 02/09/21 16:55 Last Admin: 01/28/21 05:13 Dose: 0.5 mg Documented by: [id number] Admin: 01/27/21 19:52 Dose: 0.5 mg Documented by: [id number] Admin: 01/27/21 11:34 Dose: 0.5 mg Documented by: [id number] Admin: 01/27/21 05:54 Dose: 0.5 mg Documented by: [id number] Admin: 01/26/21 18:13 Dose: 0.5 mg Documented by: [id number] Sodium Chloride (Nss 1000ml) 1,000 mls @ 999 mls/hr IV .Q1H1M ONE Stop: 01/26/21 13:22 Last Infusion: 01/26/21 13:32 Dose: 0 mls/hr Documented by: [id number] Admin: 01/26/21 12:31 Dose: 999 mls/hr Documented by: [id number] Sodium Chloride (Nss 1000ml) 1,000 mls @ 999 mls/hr IV .Q1H1M ONE Stop: 01/26/21 15:05 Last Infusion: 01/26/21 15:06 Dose: 0 mls/hr Documented by: [id number] Admin: 01/26/21 14:05 Dose: 999 mls/hr Documented by: [id number] Piperacillin Sod/Tazobactam Sod (Zosyn) 4.5 gm in 120 mls @ 240 mls/hr IV NOW ONE Stop: 01/26/21 15:12 Last Infusion: 01/26/21 16:09 Dose: 0 mls/hr Documented by: [id number] Admin: 01/26/21 15:16 Dose: 240 mls/hr Documented by: [id number] Daptomycin 500 mg/ Syringe 10 mls @ 5 mls/min IV NOW ONE; Protocol Stop: 01/26/21 14:44 Last Admin: 01/26/21 15:16 Dose: 5 mls/min Documented by: [id number] Lactated Ringer's (Lr) 1,000 mls @ 125 mls/hr IV .Q8H FRANK Stop: 02/25/21 15:29 Last Infusion: 01/27/21 00:57 Dose: 0 mls/hr Documented by: [id number] Admin: 01/26/21 16:57 Dose: 125 mls/hr Documented by: [id number] Piperacillin Sod/Tazobactam (Sod 4.5 gm/ Dextrose) 120 mls @ 30 mls/hr IV Q8H FRANK; Protocol Stop: 02/05/21 20:59 Last Infusion: 01/27/21 19:19 Dose: 0 mls/hr Documented by: [id number] Admin: 01/27/21 13:01 Dose: 30 mls/hr Documented by: [id number] Infusion: 01/27/21 10:57 Dose: 30 mls/hr Documented by: [id number] Admin: 01/27/21 04:33 Dose: 30 mls/hr Documented by: [id number] Infusion: 01/27/21 00:23 Dose: 30 mls/hr Documented by: [id number] Admin: 01/26/21 20:23 Dose: 30 mls/hr Documented by: [id number] Sodium Chloride (Nss 1000ml) 1,000 mls @ 125 mls/hr IV .Q8H FRANK Stop: 02/25/21 20:14 Last Infusion: 01/27/21 19:20 Dose: 0 mls/hr Documented by: [id number] Admin: 01/27/21 11:28 Dose: 125 mls/hr Documented by: [id number] Infusion: 01/27/21 11:28 Dose: 125 mls/hr Documented by: [id number] Admin: 01/27/21 04:33 Dose: 125 mls/hr Documented by: [id number] Infusion: 01/27/21 04:23 Dose: 125 mls/hr Documented by: [id number] Admin: 01/26/21 20:23 Dose: 125 mls/hr Documented by: [id number] Ioversol (Optiray 320 100ml) 93 ml IV ONCE ONE Stop: 01/26/21 13:05 Last Admin: 01/26/21 13:04 Dose: 93 ml Documented by: [id number] Ondansetron HCl (Ondansetron Inj 2 Mg/Ml 2 Ml Vial) 4 mg IV NOW STA Stop: 01/26/21 12:23 Last Admin: 01/26/21 12:32 Dose: 4 mg Documented by: [id number] Imaging Data Radiologist's Impression: Abdomen/Pelvis CT 01/26/21 12:[address] WITH IV CONTRAST CT DOSE: 1433.85 mGy.cm HISTORY: Pt c/o diffuse abd pain TECHNIQUE: Multiaxial CT images of the abdomen and pelvis were performed following the use of intravenous contrast. A dose lowering technique was utilized adhering to the principles of ALARA. COMPARISON STUDY: Abdomen and pelvis CT 12/04/2016. FINDINGS: The lung bases are clear. No pneumoperitoneum. No pneumatosis. Mild hepatic steatosis. The main portal vein is patent. The gallbladder, spleen, adrenal glands, pancreas, and kidneys are unremarkable. No hydronephrosis. Mild bilateral perinephric edema. This is likely chronic. No retroperitoneal lymphadenopathy. Normal caliber abdominal aorta. No pelvic free fluid. The bladder is unremarkable. A few colonic diverticula. No evidence for acute diverticulitis. Normal appendix. Dilated and fluid-filled stomach and small bowel to the level of the distal ileum where there is smooth tapering of the bowel to the decompressed ileal loops. The distal ileal loops may be mildly thickened. This is best seen within the right lower quadrant on image 288. There fore, these findings favor a bowel obstruction possibly secondary to a nonspecific ileitis. IMPRESSION: 1. Dilated and fluid-filled loops of stomach and small bowel to the level of the ileum where there is smooth tapering at a few mildly thickened loops of ileum. This likely accounts for the transition point of the small bowel obstruction. This may be secondary to an ileitis. This may represent an inflammatory infectious process. 2. Normal appendix. 3. Mild hepatic steatosis. ACT 112: Negative or not required by law. Electronically signed by: Adonay Bergeron M.D. 01/26/2021 1:34 PM Discharge Plan Visit Data Chief Complaint: Abdominal Pain Stated Complaint: BOWEL OBSTRUCTION ED Provider: Aaron Burr Discharge Problem: SBO (small bowel obstruction), Leukocytosis, Abdominal pain Patient Disposition: Admitted As Inpatient Discharge Instructions Interventions: ED Discharge Assessment Last Done: 01/26/21 16:44 Discharge Problem: Leukocytosis Qualifiers: Leukocytosis type: unspecified Qualified Code(s): D72.829 - Elevated white blood cell count, unspecified Abdominal pain Qualifiers: Abdominal location: unspecified location Qualified Code(s): R10.9 - Unspecified abdominal pain
--- NOTE | 2021-01-26 19:25 | Surgery Consultation ---
Date of Consultation January 26, 2021 Assessment & Plan (1) SBO (small bowel obstruction): Patient has been admitted to the hospital in the hospital service and we recommend proceeding in the following manner: Provide analgesics Provide antiemetics Hydration with IV fluids N.p.o. status Gastric decompression with NG tube to low continuous suction Follow serial labs Repeat KUB in the morning Discussed with the patient the most common causes of small bowel obstruction including adhesions as well as hernias. Adhesions is less likely as the patient has not had any prior surgeries and I not palpate any hernias on physical exam. There is question of that patient may have an ileitis on his a CT scan this could be the cause of his small bowel obstruction. Expressed to the patient we will try to get him through this with conservative measures reserving surgery in the event that his small bowel obstruction does not resolve in a reasonable time. We will continue to follow along with the patient is hospitalized History of Present Illness Reason for Consultation: Small bowel obstruction Attending Physician: Heriberto Cruz History of Present Illness This is a 50-year-old male who notes he has a history of chronic abdominal pain. He says for unknown reasons he will get generalized abdominal pain that r adiates across his abdomen without any palliative or provocative factors. He notes that the pain usually last for several hours or even a few days but will self resolve. Patient presented to [facility] [address] emergency department earlier today secondary to 3 days of abdominal pain similar to what is described above. He notes that the pain became more severe and would not resolve as it usually does so he presented to the emergency department. Again the patient notes generalized abdominal pain that radiates across the top of his abdomen. He did have associated nausea vomiting. In addition the patient notes that he had a low-grade fever. Further reports that he did have a bowel movement yesterday but it was mostly liquid bowel movement. He reports that he has been evaluated for celiac, Crohn's disease, and ulcerative colitis via colonoscopy and EGD both these studies he has never found any significant pathology. The patient also notes that he has never had a small bowel obstruction in the past and he has not had any prior abdominal surgeries. Upon presentation to the emergency department the patient did have labs and imaging which I independently reviewed. A CT scan of the abdomen and pelvis showed dilated and fluid-filled loops of the stomach and small bowel extending to the level of the ileum where there is a tapering along with a few mildly thickened loops of ileum that was felt to represent a small bowel obstruction and potentially an ileitis. Patient also had labs were CBC revealed his white blood cell count was 18.1. Hemoglobin, hematocrit, and platelet count were all within the normal range. Chemistry profile showed his sodium is 134. Potassium, BUN, and creatinine were all within the normal range. Lactic acid level checked and was not elevated at level 1.1. Patient's lipase was not elevated. Urinalysis was not indicative of infection and a Covid test was performed and was negative. Because of patient's symptoms admission to the hospital is recommended. He has had an NG tube placed and is just arrived to the floor awaiting to be placed to suction. At the time of my interview he was resting in bed he was in no overt distress. Allergies Allergy/AdvReac Type Severity Reaction Status Date / Time MILK,CATS Allergy Unknown SHORTNESS Uncoded 01/26/21 13:19 OF BREATH Home Medications Medication Instructions Recorded Confirmed Type allopurinol [Zyloprim] 200 mg PO QAM 01/26/21 01/26/21 History cholecalciferol (vitamin D3) 125 mcg PO QDD 01/26/21 01/26/21 History [Vitamin D3] lisinopril [Zestril] 10 mg PO QAM 01/26/21 01/26/21 History Patient History Family History Father Coronary heart disease Diabetes Dyslipidemia Heart disease Stroke Irritable bowel Mother Coronary heart disease Diabetes Dyslipidemia Stroke Irritable bowel Other COPD (chronic obstructive pulmonary disease) Social History Smoking Status: Never smoker Second Hand Exposure: No; Do You Dip or Chew Tobacco: No; Tobacco Cessation Education Requested by Patient: No Hx Alcohol Use: Yes Hx Substance Use: No Preferred Language: Danish Communication Ability: Effective Director Compensation Required: No Beliefs That Will Affect Care: None Current Living Situation: Spouse Other Information That Helps Us Care for You: No Feels Safe at Home: Yes Safety Concerns: Feels Safe At This Time Assistive Devices: None Review of Systems Constitutional: + fever; no chills Eyes: no diplopia Ear, Nose, Mouth, Throat: no ear pain Respiratory: no cough and no dyspnea Cardiovascular: no chest pain Gastrointestinal: + abdominal pain, + nausea and + diarrhea/loose stools Genitourinary: no dysuria Musculoskeletal: no back pain Integumentary: no rash Neurologic: no localized weakness Physical Exam Constitutional: well developed and well nourished; no acute distress Eyes: no conjunctival abnormality ENMT: Ears: no hearing impairment Neck: trachea midline Respiratory: normal respiratory effort, lungs clear to auscultation Cardiovascular: Rate/Rhythm: regular rate and regular rhythm Gastrointestinal (Abdomen): Abdomen is rotund and distended. Bowel sounds are hypoactive. Patient has some pain with deep palpation in a generalized fashion. There is no rebound tenderness or guarding. I do not appreciate any hernias on physical exam. His abdomen is tympanic to percussion. Musculoskeletal: No calf pain Skin: no rashes, warm and dry Neurologic: moves all extremities Psychiatric: A+Ox3, euthymic affect Results & Data ([facility]) Vital Signs (Past 12 Hours) Vital Signs Temp Pulse Pulse Resp BP BP Pulse Ox 01/26/21 17:08 36.9 C 79 18 124/81 98 01/26/21 17:03 36.9 C 79 18 124/81 98 01/26/21 16:01 81 21 98 01/26/21 16:00 85 26 H 138/87 96 01/26/21 15:31 87 26 H 99 01/26/21 15:30 81 26 H 139/96 99 01/26/21 15:01 78 22 97 01/26/21 15:00 75 25 H 138/87 96 01/26/21 14:31 80 20 99 01/26/21 14:30 80 22 140/90 98 01/26/21 14:01 78 22 98 01/26/21 14:00 84 24 134/92 99 01/26/21 13:31 146/90 H 96 01/26/21 13:30 94 01/26/21 13:01 70 20 96 01/26/21 13:00 69 23 121/80 95 01/26/21 12:37 73 20 97 01/26/21 12:31 76 24 94 01/26/21 12:30 77 19 117/80 91 01/26/21 12:01 88 22 91 01/26/21 12:00 84 18 122/81 92 06/20/21 11:33 88 20 94 01/26/21 11:30 86 20 125/83 92 01/26/21 11:06 36.5 C 94 H 20 160/98 H 97 PG Care Time/CCT Total # of Minutes Spent Total Time Spent with Patient: Total time spent is greater than 50% in coordination of care (as documented) at patient's floor/unit and/or counseling patient: Coding Level of Care Code 07387 Inpt Consult Level 5 Diagnoses SBO (small bowel obstruction) K56.609
[2021-01-26] MEDS ORDERED: Nursing to Pharmacy Communication SCH (20:15)
[2021-01-26] MEDS: PIPERACILLIN/TAZOBACTAM 4.5 GM in DEXTROSE 5% 100 ML IV SCH (20:23)
[2021-01-26] MEDS: SODIUM CHLORIDE 0.9% 1000ML 1,000 ML IV SCH (20:23)
[2021-01-26] MEDS ORDERED: HEPARIN SOD 5,000 UNIT/0.5 ML VIAL SQ SCH (21:00)
[2021-01-27] MEDS: PIPERACILLIN/TAZOBACTAM 4.5 GM in DEXTROSE 5% 100 ML IV SCH ×2 (04:33→13:01)
[2021-01-27] MEDS: SODIUM CHLORIDE 0.9% 1000ML 1,000 ML IV SCH ×2 (04:33→11:28)
[2021-01-27] MEDS: HYDROmorphone INJ 0.5 MG/0.5 ML SYR IV PRN ×3 (05:54→19:52)
[2021-01-27 06:54] LABS: Basophils # (auto) 0.03 K/uL (0-0.2); Basophils % (auto) 0.2 %; Eosinophils # (auto) 0.07 K/uL (0-0.5); Eosinophils % (auto) 0.5 %; Hematocrit (blood only) 42.7 % (42-52); Hemoglobin 14.1 g/dL (14.0-18.0); Immature Granulocytes # (auto) 0.03 K/uL (0.00-0.02); Immature Granulocytes % (auto) 0.2 %; Lymphocytes % (auto) 8.9 %; Mean Corpuscular Hemoglobin 29.1 pg (25-34); Monocytes # (auto) 0.97 K/uL (0.11-0.59); Monocytes % (auto) 7.2 %; Neutrophils # (auto) 11.21 K/uL (1.4-6.5); Platelet Count 251 K/uL (130-400); RDW Coefficient of Variation 13.4 % (11.5-14.5); RDW Standard Deviation 43.2 fL (36.4-46.3); Red Blood Count 4.85 M/uL (4.7-6.1); White Blood Count 13.51 K/uL (4.8-10.8)
[2021-01-27 07:31] LABS: BUN Creatinine Ratio 15.3 (10-20); Calcium 8.7 mg/dl (8.5-10.1); Creatinine Clr Calc Pharmacy 129.7 ml/min; Est GFR (African American) 120.6 ml/min; Magnesium 2.2 mg/dl (1.8-2.4); Potassium 3.2 mmol/L (3.5-5.1)
--- NOTE | 2021-01-27 08:45 | XRay Report ---
KUB HISTORY: Follow up study in a patient with small bowel obstruction follow up with SBO COMPARISON: KUB 01/26/2021 FINDINGS: Enteric tube distal tip projects over the proximal gastric lumen. Persistent dilated air-fi lled loops of small bowel measure up to 4.5 cm. No pneumatosis or pneumoperitoneum. No urolith. No ac tejon fracture. Unchanged sclerotic focus of the right iliac bone. Contrast noted within the urinary bl adder lumen. IMPRESSION: 1. Distal tip of enteric tube projects over the proximal stomach. 2. Persistent small bowel obstruction. 3. No pneumoperitoneum. ACT 112: Negative or not required by law. The above report was generated using voice recognition software. It may contain grammatical, syntax o r spelling errors. Electronically signed by: Oliver Cool M.D. 01/27/2021 8:44 AM
--- NOTE | 2021-01-27 09:21 | XRay Report ---
XR KUB/Abdomen 1 view CLINICAL HISTORY: confirm proper placement of NG tube COMPARISON STUDY: January 26, 2021 at 6:25 hours FINDINGS: Fenestrated side-port of the gastric tube is seen at the level of the left hemidiaphragm. Tip is seen within the anatomical region of the stomach. Gas-filled loops of small and large bowel are again seen within upper abdomen. IMPRESSION: 1. Tip of fenestrated side-port is above level of the hemidiaphragm. Advancement approximately 3 to 5 cm recommended. ACT 112: Negative or not required by law. The above report was generated using voice recognition software. It may contain grammatical, syntax o r spelling errors. Electronically signed by: Celia Spann DO 01/27/2021 9:20 AM
--- NOTE | 2021-01-27 09:31 | Surgery Progress Note ---
Date of Service January 27, 2021 Assessment & Plan (1) SBO (small bowel obstruction): clinically most c/w inflammatory bowel/crohn's. will await GI input. ? empirically treat as IBD vs repeat colonoscopy with attempt at terminal ileum bx. no urgent indications for surgical intervention. will continue to follow along. Admission and Anticipated Discharge Date Admission Date: January 26, 2021 Subjective pt feeling better. main complaint is NGT. abdominal distension/pain/nausea all improved. large amount out of NGT ( 4000 cc). pt states he has had chronic abdominal pain for over 20 years. last GI w/u approx 8 years ago. Physical Exam Constitutional: WD/WN, vitals as above no acute distress and not ill appearing Eyes: PERRL, conjunctivae normal, anicteric sclerae EOM intact bilaterally ENMT: external ear and nose normal, oropharynx normal Ears: no hearing impairment Neck: trachea midline, no thyromegaly Respiratory: normal respiratory effort; no respiratory distress and does not use accessory muscles Cardiovascular: Rate/Rhythm: regular rate and regular rhythm Gastrointestinal (Abdomen): abd: soft. mild ttp. no g/r/r. mild distension. Skin: no rashes, warm and dry Psychiatric: Orientation: alert, oriented x 3 and cooperative Results & Data ([facility]) Vital Signs (Past 12 Hours) Vital Signs Temp Pulse Resp BP Pulse Ox 01/27/21 07:09 36.9 C 66 16 124/75 95 01/26/21 22:12 36.9 C 74 18 131/80 94 PG Care Time/CCT Total # of Minutes Spent Total Time Spent with Patient: Total time spent is greater than 50% in coordination of care (as documented) at patient's floor/unit and/or counseling patient: Coding Level of Care Code 27393 Subseq Hosp Care Lvl 3 Diagnoses SBO (small bowel obstruction) K56.609
[2021-01-27] MEDS: HEPARIN SOD 5,000 UNIT/0.5 ML VIAL SQ SCH ×3 (11:23→19:53)
--- NOTE | 2021-01-27 14:59 | Electrocardiogram Report ---
Test Reason : Blood Pressure : / mmHG Vent. Rate : 074 BPM Atrial Rate : 074 BPM P-R Int : 154 ms QRS Dur : 086 ms QT Int : 414 ms P-R-T Axes : 033 015 012 degrees QTc Int : 459 ms Poor data quality, interpretation may be adversely affected Normal sinus rhythm Normal ECG When compared with ECG of 29-DEC-2016 00:27, No significant change was found Confirmed by Raghav Gaming ([id number]) on 01/27/2021 2:59:25 PM Referred By: REFERRED SELF Confirmed By:Raghav Gaming
[2021-01-27] MEDS: D5W AND 1/2NSS + 20MEQ KCL 20 MEQ/1,000 ML BAG IV SCH (16:14)
--- NOTE | 2021-01-27 17:17 | Hospitalist Progress Note ---
Date of Service January 27, 2021 Assessment & Plan (1) SBO (small bowel obstruction): NG tube to low intermittent suction Switch NSS to D5W half NSS + K Cl, may need to increase rate to keep up with substantial gastric fluid loss 4425ml last 24 hours. Appreciate ongoing general surgery management (2) Ileitis: Less likely infective given recurrent nature of his abdominal pain presumably also due to ileitis More likely Crohn's although notably previous workup negative. Multiple alternative etiologies and would consider outpatient video capsule endoscopy if EGD/colonoscopy unremarkable and no surgical specimen taken. No family history of autoimmune conditions. No personal history of of arthropathies or skin rashes to suggest vasculitides. CRP/ESR with AM labs Stool culture Stop IV antibiotics despite improvement in WBC no fever/chills to suggest infective etiology. Consult gastroenterology (3) HTN (hypertension): Hold Lisinopril - Notify if SBP >160 for IV coverage (4) Obesity: BMI 38- continue to work through PCP for risk reductions (5) DVT prophylaxis: Heparin 7500 units SQ TID Admission and Anticipated Discharge Date Admission Date: January 26, 2021 Subjective Abdominal pain much improved, generalized without radiation, severity 2/10. No nausea or vomiting with NG tube. Passing flatus but not yet had a bowel movement. No fevers or chills. Review of Systems Review of Systems: All systems reviewed & are unremarkable except as noted in HPI & below Physical Exam Constitutional: WD/WN, vitals as above Eyes: + anicteric sclerae; normal pupil size Respiratory: normal respiratory effort, lungs clear to auscultation Cardiovascular: RRR, no murmur, no edema Gastrointestinal (Abdomen): Inspection/Auscultation: abdomen normal to inspection and + hypoactive bowel sounds; abdomen not distended Percussion/Palpation: + abdomen tender (Generalized, mild) and abdomen soft; no guarding and abdomen not rigid Musculoskeletal: no cyanosis or clubbing, extremities motor strength 5/5 Skin: no rashes, warm and dry Neurologic: moves all extremities and awake; not confused Psychiatric: A+Ox3, euthymic affect Results & Data Results & Data ([facility]) Vital Signs (Past 12 Hours) Vital Signs Temp Pulse Resp BP Pulse Ox 01/27/21 15:20 37.6 C H 70 16 121/74 94 01/27/21 07:09 36.9 C 66 16 124/75 95 PG Care Time/CCT Total # of Minutes Spent Total Time Spent with Patient: Total time spent is greater than 50% in coordination of care (as documented) at patient's floor/unit and/or counseling patient: Coding Level of Care Code 05165 Subseq Hosp Care Lvl 2 Diagnoses SBO (small bowel obstruction) K56.609 Ileitis K52.9 HTN (hypertension) I10 Hypertension type: unspecified Obesity E66.9 DVT prophylaxis Z29.9 (1) HTN (hypertension) Hypertension type: unspecified Qualified Code(s): I10 - Essential (primary) hypertension
[2021-01-27] MEDS ORDERED: CHLORASEPTIC 1.4% SOLN 180 ML BTL MT PRN (19:53)
[2021-01-28] MEDS: D5W AND 1/2NSS + 20MEQ KCL 20 MEQ/1,000 ML BAG IV SCH ×5 (00:25→18:36)
[2021-01-28] MEDS: HYDROmorphone INJ 0.5 MG/0.5 ML SYR IV PRN (05:13)
[2021-01-28 06:08] LABS: Basophils # (auto) 0.04 K/uL (0-0.2); Basophils % (auto) 0.3 %; Eosinophils % (auto) 2.6 %; Hematocrit (blood only) 43.1 % (42-52); Hemoglobin 14.1 g/dL (14.0-18.0); Immature Granulocytes # (auto) 0.04 K/uL (0.00-0.02); Immature Granulocytes % (auto) 0.3 %; Lymphocytes # (auto) 2.52 K/uL (1.2-3.4); Lymphocytes % (auto) 21.5 %; Mean Corpuscular Hemoglobin 29.6 pg (25-34); Mean Corpuscular Hgb Conc 32.7 g/dL (32-36); Mean Corpuscular Volume 90.5 fL (80-100); Monocytes # (auto) 1.03 K/uL (0.11-0.59); Monocytes % (auto) 8.8 %; Neutrophils # (auto) 7.77 K/uL (1.4-6.5); Neutrophils % (auto) 66.5 %; Platelet Count 243 K/uL (130-400); RDW Coefficient of Variation 13.5 % (11.5-14.5); RDW Standard Deviation 44.8 fL (36.4-46.3); Red Blood Count 4.76 M/uL (4.7-6.1)
[2021-01-28 06:42] LABS: Albumin Globulin Ratio 0.8 (0.9-2); BUN Creatinine Ratio 16.4 (10-20); Bilirubin,Total 0.8 mg/dl (0.2-1); C Reactive Protein 4.68 mg/dl (0-0.29); Calcium 8.3 mg/dl (8.5-10.1); Creatinine Clr Calc Pharmacy 141.6 ml/min; Est GFR (Non-African American) 107.9 ml/min; Globulin 3.6 gm/dl (2.5-4.0); Total Protein 6.6 gm/dl (6.4-8.2)
[2021-01-28 08:34] LABS: Potassium 3.5 mmol/L (3.5-5.1)
[2021-01-28] MEDS: HEPARIN SOD 5,000 UNIT/0.5 ML VIAL SQ SCH ×2 (08:35→15:00)
[2021-01-28 08:39] LABS: Magnesium 2.4 mg/dl (1.8-2.4)
--- NOTE | 2021-01-28 09:53 | Gastrointestinal Consultation ---
Date of Consultation January 28, 2021 Assessment & Plan (1) SBO (small bowel obstruction): (2) Ileitis: Pt is a 50 y.o. male with a history of chronic, intermittent abdominal pain admitted with terminal ileitis and SBO, concerning for Crohn's disease. 1. Continue NPO and NG decompression as persistent obstruction on KUB from yesterday. 2. Start Solu-Medrol 20 mg IV BID. 3. Continue IV Zosyn. 4. Plan for outpatient colonoscopy once obstruction has resolved. 5. Continue supportive care. 6. If no improvement with steroids, may need to reconsider surgical intervention. Thank you for allowing us to participate in the care of this pleasant patient. If you have any questions or concerns, please do not hesitate to contact us. Supervising Physician Co-Signing Physician Notes I personally evaluated the patient and agree with the findings as documented by BENEDICT Antunez Exam: abd: soft, nt, nd History of Present Illness Reason for Consultation: SBO Requesting Physician: Dr. Collado Attending Physician: Heriberto Collado MD History of Present Illness Patient is a pleasant 50 y.o. male with a history of chronic abdominal pain and constipation which he states has been ongoing for the past 15 years. He did have both an upper and lower endoscopy by Dr. Torres which was unremarkable. States he develops sharp and twisting pain in the periumbilical and RLQ regions that wax and wane intermittently. At times, the pains are severe and are associated with n/v. Patient presented to the ER on 01/26/21 after several days of irregular bowel movements and abdominal pain as well as persistent vomiting which was brown and with undigested food. He did undergo a CT a/p with findings of dilated small bowel loops with a discreet transition point at the TI. He has been kept NPO and with NGT decompression which continues to have feculent output. KUB from yesterday with persistent obstruction. General surgery has evaluated the patient and is not considering emergent surgical intervention. Currently, patient rates pain as 2/10 in intensity. No further vomiting. Laboratory testing from this morning reviewed and with a mild leukocytosis. No anemia. CRP 4.68. Denies any outpatient NSAID use. No family history of IBD or GI malignancy. No prior abdominal surgery. Allergies Allergy/AdvReac Type Severity Reaction Status Date / Time MILK,CATS Allergy Unknown SHORTNESS Uncoded 01/26/21 13:19 OF BREATH Home Medications Medication Instructions Recorded Confirmed Type allopurinol [Zyloprim] 200 mg PO QAM 01/26/21 01/26/21 History cholecalciferol (vitamin D3) 125 mcg PO QDD 01/26/21 01/26/21 History [Vitamin D3] lisinopril [Zestril] 10 mg PO QAM 01/26/21 01/26/21 History Patient History Family History Father Coronary heart disease Diabetes Dyslipidemia Heart disease Stroke Irritable bowel Mother Coronary heart disease Diabetes Dyslipidemia Stroke Irritable bowel Other COPD (chronic obstructive pulmonary disease) Social History Smoking Status: Never smoker Second Hand Exposure: No; Do You Dip or Chew Tobacco: No; Tobacco Cessation Education Requested by Patient: No Hx Alcohol Use: Yes Hx Substance Use: No Preferred Language: Czech Communication Ability: Effective Test Designer Required: No Beliefs That Will Affect Care: None Current Living Situation: Spouse Other Information That Helps Us Care for You: No Feels Safe at Home: Yes Safety Concerns: Feels Safe At This Time Assistive Devices: None Review of Systems Review of Systems: All systems reviewed & are unremarkable except as noted in HPI & below Physical Exam Constitutional: WD/WN, vitals as above well developed and well nourished ENMT: NG intact. Respiratory: normal respiratory effort, lungs clear to auscultation Cardiovascular: Rate/Rhythm: regular rate and regular rhythm Gastrointestinal (Abdomen): Inspection/Auscultation: + abdomen distended, normal bowel sounds (LLQ) and + hypoactive bowel sounds (RLQ) Percussion/Palpation: abdomen soft Psychiatric: A+Ox3, euthymic affect Results & Data ([facility]) Vital Signs (Past 12 Hours) Vital Signs Temp Pulse Resp BP Pulse Ox 01/28/21 07:34 37.2 C 58 L 16 110/71 95 01/27/21 22:19 36.9 C 84 16 113/73 96 Laboratory Results Abnormal lab results 01/28/21 01/28/21 01/28/21 Range/Units 05:42 05:42 05:42 WBC 11.70 H (4.8-10.8) K/uL MPV 11.0 H (7.4-10.4) fL Neut # (Auto) 7.77 H (1.4-6.5) K/uL Summers # (Auto) 1.03 H (0.11-0.59) K/uL Immature Gran # (Auto) 0.04 H (0.00-0.02) K/uL ESR 33 H (0-15) mm/hr Carbon Dioxide 33 H (21-32) mmol/L Anion Gap 1.0 L (3-11) Glucose 119 H (70-99) mg/dl Calcium 8.3 L (8.5-10.1) mg/dl Alkaline Phosphatase 39 L (45-117) U/L C-Reactive Protein 4.68 H (0-0.29) mg/dl Albumin 3.0 L (3.4-5.0) gm/dl Albumin/Globulin Ratio 0.8 L (0.9-2) PG Care Time/CCT Total # of Minutes Spent Total Time Spent with Patient: Total time spent is greater than 50% in c oordination of care (as documented) at patient's floor/unit and/or counseling patient: Coding Level of Care Code 63873 Inpt Consult Level 4 Diagnoses SBO (small bowel obstruction) K56.609 Ileitis K52.9
--- NOTE | 2021-01-28 10:18 | XRay Report ---
KUB CLINICAL HISTORY: Small bowel obstruction. FINDINGS: 3 AP supine abdominal radiographs are compared to study dated 01/27/2021 and correlated with abdominal CT dated 01/26/2021. An enteric tube is unchanged in position. The tip projects over the ga stric fundus with the sideholes at the level of the diaphragm. There is persistent gaseous distention of the small bowel loops which measure up to 4.4 cm. This appears improved from yesterday. No eviden ce of intraperitoneal free air is seen on these supine views. There are no abnormal abdominal calcifi cations. The bony structures appear intact. A bone island is again noted in the right iliac wing. IMPRESSION: 1. An enteric tube is unchanged in position. 2. There is improving gaseous distention of the small bowel loops as compared to yesterday. Electronically signed by: Alessio Haines M.D. 01/28/2021 10:16 AM
--- NOTE | 2021-01-28 11:00 | Surgery Progress Note ---
Date of Service January 28, 2021 Assessment & Plan (1) Ileitis: (2) SBO (small bowel obstruction): Patient feeling improvement in symptoms. Passing flatus, pain improving KUB revealed gaseous distention of small bowel, but is improved from yesterday NGT ~2 L in 12 hours, will continue this and ongoing supportive care for now Appreciate GI's input, recommended starting on a course of steroids as above. feeling better. no bowel fx yet. much less distenstion. continue curent care. will continue to follow along. Admission and Anticipated Discharge Date Admission Date: January 26, 2021 Subjective Patient says he is feeling fairly well. Passing flatus. Abdominal pain is present, but improved. Says he always has some aspect of chronic belly pain. Denies nausea/vomiting. Some discomfort related to NGT. Physical Exam Physical Exam: awake/alert Respiratory: normal respiratory effort Gastrointestinal (Abdomen): Inspection/Auscultation: + abdomen distended (mild/mod) Percussion/Palpation: abdomen soft; abdomen nontender Results & Data ([facility]) Vital Signs (Past 12 Hours) Vital Signs Temp Pulse Resp BP Pulse Ox 01/28/21 07:34 37.2 C 58 L 16 110/71 95 PG Care Time/CCT Total # of Minutes Spent Total Time Spent with Patient: Total time spent is greater than 50% in coordination of care (as documented) at patient's floor/unit and/or counseling patient: Coding Level of Care Code 32866 Subseq Hosp Care Lvl 3 Diagnoses Ileitis K52.9 SBO (small bowel obstruction) K56.609
[2021-01-28] MEDS: methylPREDNISolone 20 MG in SYRINGE 0 ML IV SCH ×2 (11:49→21:20)
[2021-01-28] MEDS ORDERED: PIPERACILL/TAZOBAC CONSULT ACTIVE PRN (12:28)
[2021-01-28] MEDS ORDERED: PIPERACILLIN/TAZOBACTAM 3.375 GM in DEXTROSE 5% 100 ML IV SCH (12:30)
[2021-01-28] MEDS ORDERED: PIPERACILLIN/TAZOBACTAM 4.5 GM in DEXTROSE 5% 100 ML IV ONE (12:45)
[2021-01-28] MEDS ORDERED: HYDROmorphone INJ 0.5 MG/0.5 ML SYR IV PRN (12:47)
--- NOTE | 2021-01-28 12:49 | Hospitalist Progress Note ---
Date of Service January 28, 2021 Assessment & Plan (1) SBO (small bowel obstruction): Continue NG tube to low intermittent suction - output decreasing approximately from 4 to 2L yesterday Symptoms and KUB XR improving Continue D5W half NSS + 40meq K Cl @ 150ml/hr Appreciate ongoing general surgery management (2) Ileitis: Less likely infective given recurrent nature of his abdominal pain presumably also due to ileitis. Discussed with Dr Felipe at bedside and will continue off antibiotics. More likely Crohn's although notably previous workup negative and IV steroids started per GI recommendations. No family history of autoimmune conditions. No personal history of of arthropathies or skin rashes to suggest vasculitides. CRP decreasing, ESR 33 Stool culture - when he has a BM Appreciate GI ongoing recommendations (3) HTN (hypertension): Hold Lisinopril Hydralazine PRN for sBP >180 (4) Obesity: BMI 38- continue to work through PCP for risk reductions (5) DVT prophylaxis: Heparin 7500 units SQ TID Admission and Anticipated Discharge Date Admission Date: January 26, 2021 Subjective Mainly taking pain medication due to discomfort from NG tube. Abdominal pain improving but still present. Passing flatus. Not yet had BM. Discussed with Dr Felipe at bedside. Physical Exam Constitutional: WD/WN, vitals as above Eyes: + anicteric sclerae; normal pupil size Respiratory: normal respiratory effort, lungs clear to auscultation Cardiovascular: RRR, no murmur, no edema Gastrointestinal (Abdomen): Inspection/Auscultation: abdomen normal to in spection and normal bowel sounds; abdomen not distended Percussion/Palpation: + abdomen tender (Generalized, mild) and abdomen soft; no guarding and abdomen not rigid Neurologic: moves all extremities and awake; not confused Psychiatric: A+Ox3, euthymic affect Results & Data Results & Data ([facility]) Vital Signs (Past 12 Hours) Vital Signs Temp Pulse Resp BP Pulse Ox 01/28/21 07:34 37.2 C 58 L 16 110/71 95 PG Care Time/CCT Total # of Minutes Spent Total Time Spent with Patient: Total time spent is greater than 50% in coordination of care (as documented) at patient's floor/unit and/or counseling patient: Coding Level of Care Code 58787 Subseq Hosp Care Lvl 2 Diagnoses SBO (small bowel obstruction) K56.609 Ileitis K52.9 HTN (hypertension) I10 Hypertension type: unspecified Obesity E66.9 DVT prophylaxis Z29.9 (1) HTN (hypertension) Hypertension type: unspecified Qualified Code(s): I10 - Essential (primary) hypertension
[2021-01-28] MEDS ORDERED: LIDOCAINE VISCOUS 2% 15 ML UDC PO PRN (13:16)
[2021-01-28] MEDS ORDERED: hydrALAZINE HCL 20 MG/ML VIAL IV PRN (13:22)
[2021-01-28] MEDS: FAMOTIDINE 20 MG in SYRINGE 3 ML IV SCH (16:50)
[2021-01-28 17:37] LABS: Gastric Occult Blood Positive (Negative); pH Gastric Fluid 2
[2021-01-28] MEDS ORDERED: PIPERACILLIN/TAZOBACTAM 4.5 GM in DEXTROSE 5% 100 ML IV SCH (18:00)
[2021-01-29] MEDS: D5W AND 1/2NSS + 20MEQ KCL 20 MEQ/1,000 ML BAG IV SCH ×4 (01:29→23:15)
[2021-01-29 06:22] LABS: Basophils # (auto) 0.02 K/uL (0-0.2); Basophils % (auto) 0.1 %; Eosinophils # (auto) 0.01 K/uL (0-0.5); Eosinophils % (auto) 0.1 %; Hematocrit (blood only) 43.1 % (42-52); Hemoglobin 14.3 g/dL (14.0-18.0); Immature Granulocytes # (auto) 0.09 K/uL (0.00-0.02); Immature Granulocytes % (auto) 0.6 %; Lymphocytes # (auto) 1.74 K/uL (1.2-3.4); Mean Corpuscular Hemoglobin 29.2 pg (25-34); Mean Corpuscular Hgb Conc 33.2 g/dL (32-36); Mean Platelet Volume 10.9 fL (7.4-10.4); Monocytes # (auto) 0.75 K/uL (0.11-0.59); Monocytes % (auto) 5.2 %; Neutrophils # (auto) 11.93 K/uL (1.4-6.5); Platelet Count 236 K/uL (130-400); RDW Coefficient of Variation 12.8 % (11.5-14.5); RDW Standard Deviation 41.2 fL (36.4-46.3); White Blood Count 14.54 K/uL (4.8-10.8)
[2021-01-29 06:58] LABS: BUN Creatinine Ratio 11.7 (10-20); Calcium 8.8 mg/dl (8.5-10.1); Creatinine Clr Calc Pharmacy 160.7 ml/min; Est GFR (African American) 131.7 ml/min; Est GFR (Non-African American) 113.6 ml/min; Potassium 4.2 mmol/L (3.5-5.1)
[2021-01-29] MEDS: methylPREDNISolone 20 MG in SYRINGE 0 ML IV SCH ×2 (07:43→20:10)
--- NOTE | 2021-01-29 08:17 | Hospitalist Progress Note ---
Date of Service January 29, 2021 Assessment & Plan (1) SBO (small bowel obstruction): Continue NG tube to low intermittent suction - output decreasing from 4.4L --> 2.3L --> 1.1L today so far Symptoms and KUB XR improving -- repeat KUB with non-obstructive bowel gas pattern Passing gas, but no BM. Continue frequent ambulation Continue NGT for now +gastric occult -- Heparin SQ discontinued and placed daily famotidine IVP, hgb stable SCDs, frequent ambulation encouraged Methylprednisolone continued per GI recs (WBC 14.5k but afebrile) IVF continued Appreciate ongoing general surgery management GI on consult - outpt scope will need to be arranged Labs in AM (2) Ileitis: Less likely infective given recurrent nature of his abdominal pain presumably also due to ileitis. Discussed with Dr Felipe at bedside and will continue off antibiotics (D ISCONTINUED ZOSYN 01/27) More likely Crohn's although notably previous workup negative IV steroids started per GI recommendations on 01/28 -- continue No family history of autoimmune conditions. No personal history of of arthropathies or skin rashes to suggest vasculitides. CRP decreasing (6.88-->4.68), ESR 33 Stool culture - when he has a BM Appreciate GI ongoing recommendations (3) HTN (hypertension): Hold Lisinopril Hydralazine PRN for sBP >180 (4) Obesity: BMI 38- continue to work through PCP for risk reductions (5) DVT prophylaxis: Heparin 7500 units SQ TID --> PLACED ON HOLD GIVEN + GASTRIC OCCULT. FAMOTIDINE ABOVE Dispo: continued inpatient stay Admission and Anticipated Discharge Date Admission Date: January 26, 2021 Subjective Patient evaluated this morning. Discussed positive gastric occult and will hold off on Heparin SQ. He has been ambulating the halls frequently. Passing gas but no BM. Was seen by surgery but not GI just yet but anticipates scope as an outpatient. NGT output decreasing. Continues on steroids. No f/c/cp/sob, nausea reported. Questions/concerns addressed at this time. Review of Systems Review of Systems: All systems reviewed & are unremarkable except as noted in HPI & below Physical Exam Constitutional: well developed, well nourished, cooperative and comfortable; no acute distress Eyes: + anicteric sclerae and PERRL ENMT: Ears: no hearing impairment Neck: trachea midline NGT with black/coffee ground drainage Respiratory: normal respiratory effort, lungs clear to auscultation Cardiovascular: Rate/Rhythm: regular rhythm and + bradycardic Heart Sounds: normal S1 and normal S2; no murmur Vessels: no JVD Extremities: no edema Gastrointestinal (Abdomen): Inspection/Auscultation: abdomen normal to inspe ction and normal bowel sounds Percussion/Palpation: abdomen soft; abdomen nontender, no guarding and abdomen not rigid Musculoskeletal: no cyanosis or clubbing, extremities motor strength 5/5 Skin: no rashes, warm and dry Neurologic: PERRL, EOMI, accommodation nl, no face palsy, no dysarthria Psychiatric: A+Ox3, euthymic affect Results & Data Results & Data ([facility]) Vital Signs (Past 12 Hours) Vital Signs Temp Pulse Resp BP Pulse Ox 01/29/21 06:33 36.7 C 58 L 18 130/91 99 01/28/21 22:26 36.7 C 63 16 119/80 96 Laboratory Results 01/29/21 01/29/21 01/28/21 Range/Units 05:56 05:56 16:11 WBC 14.54 H (4.8-10.8) K/uL RBC 4.90 (4.7-6.1) M/uL Hgb 14.3 (14.0-18.0) g/dL Hct 43.1 (42-52) % MCV 88.0 (80-100) fL MCH 29.2 (25-34) pg MCHC 33.2 (32-36) g/dL RDW Std Deviation 41.2 (36.4-46.3) fL RDW Coeff of Harriet 12.8 (11.5-14.5) % Plt Count 236 (130-400) K/uL MPV 10.9 H (7.4-10.4) fL Immature Gran % (Auto) 0.6 % Neut % (Auto) 82.0 % Lymph % (Auto) 12.0 % Heard % (Auto) 5.2 % Eos % (Auto) 0.1 % Baso % (Auto) 0.1 % Neut # (Auto) 11.93 H (1.4-6.5) K/uL Lymph # (Auto) 1.74 (1.2-3.4) K/uL Heard # (Auto) 0.75 H (0.11-0.59) K/uL Eos # (Auto) 0.01 (0-0.5) K/uL Baso # (Auto) 0.02 (0-0.2) K/uL Immature Gran # (Auto) 0.09 H (0.00-0.02) K/uL Sodium 137 (136-145) mmol/L Potassium 4.2 D (3.5-5.1) mmol/L Chloride 107 (98-107) mmol/L Carbon Dioxide 27 (21-32) mmol/L Anion Gap 3.0 (3-11) BUN 8 D (7-18) mg/dl Creatinine 0.67 (0.6-1.4) mg/dl Est Cr Clr Drug Dosing 160.7 ml/min Est GFR ( Amer) 131.7 ml/min Est GFR (Non-Af Amer) 113.6 ml/min BUN/Creatinine Ratio 11.7 (10-20) Glucose 124 H (70-99) mg/dl Calcium 8.8 (8.5-10.1) mg/dl Magnesium (1.8-2.4) mg/dl AST (15-37) U/L Gastric Fluid pH 2 Gastric Occult Blood Positive A (Negative) 01/28/21 Range/Units 07:40 WBC (4.8-10.8) K/uL RBC (4.7-6.1) M/uL Hgb (14.0-18.0) g/dL Hct (42-52) % MCV (80-100) fL MCH (25-34) pg MCHC (32-36) g/dL RDW Std Deviation (36.4-46.3) fL RDW Coeff of Harriet (11.5-14.5) % Plt Count (130-400) K/uL MPV (7.4-10.4) fL Immature Gran % (Auto) % Neut % (Auto) % Lymph % (Auto) % Heard % (Auto) % Eos % (Auto) % Baso % (Auto) % Neut # (Auto) (1.4-6.5) K/uL Lymph # (Auto) (1.2-3.4) K/uL Heard # (Auto) (0.11-0.59) K/uL Eos # (Auto) (0-0.5) K/uL Baso # (Auto) (0-0.2) K/uL Immature Gran # (Auto) (0.00-0.02) K/uL Sodium (136-145) mmol/L Potassium 3.5 (3.5-5.1) mmol/L Chloride (98-107) mmol/L Carbon Dioxide (21-32) mmol/L Anion Gap (3-11) BUN (7-18) mg/dl Creatinine (0.6-1.4) mg/dl Est Cr Clr Drug Dosing ml/min Est GFR ( Amer) ml/min Est GFR (Non-Af Amer) ml/min BUN/Creatinine Ratio (10-20) Glucose (70-99) mg/dl Calcium (8.5-10.1) mg/dl Magnesium 2.4 (1.8-2.4) mg/dl AST 18 (15-37) U/L Gastric Fluid pH Gastric Occult Blood (Negative) Diagnostic Findings 01/29/21 01/29/21 01/28/21 Range/Units 05:56 05:56 16:11 WBC 14.54 H (4.8-10.8) K/uL RBC 4.90 (4.7-6.1) M/uL Hgb 14.3 (14.0-18.0) g/dL Hct 43.1 (42-52) % MCV 88.0 (80-100) fL MCH 29.2 (25-34) pg MCHC 33.2 (32-36) g/dL RDW Std Deviation 41.2 (36.4-46.3) fL RDW Coeff of Harriet 12.8 (11.5-14.5) % Plt Count 236 (130-400) K/uL MPV 10.9 H (7.4-10.4) fL Immature Gran % (Auto) 0.6 % Neut % (Auto) 82.0 % Lymph % (Auto) 12.0 % Heard % (Auto) 5.2 % Eos % (Auto) 0.1 % Baso % (Auto) 0.1 % Neut # (Auto) 11.93 H (1.4-6.5) K/uL Lymph # (Auto) 1.74 (1.2-3.4) K/uL Heard # (Auto) 0.75 H (0.11-0.59) K/uL Eos # (Auto) 0.01 (0-0.5) K/uL Baso # (Auto) 0.02 (0-0.2) K/uL Immature Gran # (Auto) 0.09 H (0.00-0.02) K/uL Sodium 137 (136-145) mmol/L Potassium 4.2 D (3.5-5.1) mmol/L Chloride 107 (98-107) mmol/L Carbon Dioxide 27 (21-32) mmol/L Anion Gap 3.0 (3-11) BUN 8 D (7-18) mg/dl Creatinine 0.67 (0.6-1.4) mg/dl Est Cr Clr Drug Dosing 160.7 ml/min Est GFR ( Amer) 131.7 ml/min Est GFR (Non-Af Amer) 113.6 ml/min BUN/Creatinine Ratio 11.7 (10-20) Glucose 124 H (70-99) mg/dl Calcium 8.8 (8.5-10.1) mg/dl Gastric Fluid pH 2 Gastric Occult Blood Positive A (Negative) PG Care Time/CCT Total # of Minutes Spent Total Time Spent with Patient: Total time spent is greater than 50% in coordination of care (as documented) at patient's floor/unit and/or counseling patient: Coding Level of Care Code 04553 Subseq Hosp Care Lvl 3 Diagnoses SBO (small bowel obstruction) K56.609 Ileitis K52.9 HTN (hypertension) I10 Hypertension type: unspecified Obesity E66.9 DVT prophylaxis Z29.9 (1) HTN (hypertension) Hypertension type: unspecified Qualified Code(s): I10 - Essential (primary) hypertension
--- NOTE | 2021-01-29 09:23 | Surgery Progress Note ---
Date of Service January 29, 2021 Assessment & Plan (1) SBO (small bowel obstruction): Patient clinically doing okay. Not much pain, no nausea/vomiting. + flatus, no BM yet NGT 660 over 12 hours, 1.1L over 24 documented KUB ordered and pending, will follow up on results GI following and patient currently on solu-medrol as above. feeling better. KUB shows non-obstructive pattern. clamping trial today...if tolerates can d/c ngt and try clears. (2) Ileitis: Admission and Anticipated Discharge Date Admission Date: January 26, 2021 Subjective Patient feeling about the same as yesterday. Passing flatus, no BM yet. No nausea/vomiting. Pain manageable. Physical Exam Physical Exam: awake/alert Constitutional: no acute distress Gastrointestinal (Abdomen): Percussion/Palpation: abdomen soft; abdomen nontender Results & Data ([facility]) Vital Signs (Past 12 Hours) Vital Signs Temp Pulse Resp BP Pulse Ox 01/29/21 06:33 36.7 C 58 L 18 130/91 99 01/28/21 22:26 36.7 C 63 16 119/80 96 PG Care Time/CCT Total # of Minutes Spent Total Time Spent with Patient: Total time spent is greater than 50% in coordination of care (as documented) at patient's floor/unit and/or counseling patient: Coding Level of Care Code 90237 Subseq Hosp Care Lvl 2 Diagnoses SBO (small bowel obstruction) K56.609 Ileitis K52.9
--- NOTE | 2021-01-29 10:02 | XRay Report ---
XR KUB/Abdomen 1 view CLINICAL HISTORY: Small bowel obstruction COMPARISON STUDY: 01/28/2021 FINDINGS: There is an enteric tube with its tip at the level the esophagogastric junction. There are no abnormally dilated loops of large or small bowel. There is a sclerotic density projected in the ri ght iliac bone likely representing a bone island. IMPRESSION: Nonobstructive bowel gas pattern. ACT 112: Negative or not required by law. Electronically signed by: Camron Pinzon M.D. 01/29/2021 10:01 AM
--- NOTE | 2021-01-29 10:40 | Gastroenterology Progress Note ---
Date of Service January 29, 2021 Assessment & Plan (1) SBO (small bowel obstruction): (2) Ileitis: Pt is a 50 y.o. male with a history of chronic, intermittent abdominal pain admitted with terminal ileitis and SBO, concerning for Crohn's disease now with improved imaging. 1. Clamp NG now. If no returning n/v/abdominal pain, can d/c NG and initiate clear liquid diet. 2. Continue Solu-Medrol 20 mg IV BID. 3. Encouraged ambulation. 4. Plan for outpatient colonoscopy once obstruction has resolved. 5. Continue supportive care. Thank you for allowing us to participate in the care of this pleasant patient. If you have any questions or concerns, please do not hesitate to contact us. Admission and Anticipated Discharge Date Admission Date: January 26, 2021 Subjective Patient has had reduced NG output. Reports some ambulation but throat pain with movement due to NG. KUB this morning resolved obstruction. Passing flatus but no BM. No abdominal pain or n/v. Review of Systems Review of Systems: All systems reviewed & are unremarkable except as noted in HPI & below Physical Exam Constitutional: WD/WN, vitals as above well developed and well nourished Respiratory: normal respiratory effort, lungs clear to auscultation Cardiovascular: Rate/Rhythm: regular rate and regular rhythm Gastrointestinal (Abdomen): Inspection/Auscultation: + abdomen distended and + hypoactive bowel sounds Percussion/Palpation: abdomen nontender Results & Data Results & Data ([facility]) Vital Signs (Past 12 Hours) Vital Signs Temp Pulse Resp BP Pulse Ox 01/29/21 06:33 36.7 C 58 L 18 130/91 99 Laboratory Results Abnormal lab results 01/28/21 01/29/21 01/29/21 Range/Units 16:11 05:56 05:56 WBC 14.54 H (4.8-10.8) K/uL MPV 10.9 H (7.4-10.4) fL Neut # (Auto) 11.93 H (1.4-6.5) K/uL [place] # (Auto) 0.75 H (0.11-0.59) K/uL Immature Gran # (Auto) 0.09 H (0.00-0.02) K/uL Glucose 124 H (70-99) mg/dl Gastric Occult Blood Positive A (Negative) PG Care Time/CCT Total # of Minutes Spent Total Time Spent with Patient: Total time spent is greater than 50% in coordination of care (as documented) at patient's floor/unit and/or counseling patient: Coding Level of Care Code 29995 Subseq Hosp Care Lvl 3 Diagnoses SBO (small bowel obstruction) K56.609 Ileitis K52.9
[2021-01-29] MEDS ORDERED: ACETAMINOPHEN 1000 MG/100 ML IV IV STA (12:17)
[2021-01-29] MEDS ORDERED: ACETAMINOPHEN 1,000 MG/100 ML VIAL IV PRN (12:19)
[2021-01-29] MEDS: FAMOTIDINE 20 MG in SYRINGE 3 ML IV SCH (16:17)
[2021-01-30] MEDS: D5W AND 1/2NSS + 20MEQ KCL 20 MEQ/1,000 ML BAG IV SCH ×2 (05:52→15:15)
[2021-01-30 07:59] LABS: Hematocrit (blood only) 44.5 % (42-52); Hemoglobin 14.8 g/dL (14.0-18.0); Mean Corpuscular Hemoglobin 29.3 pg (25-34); Mean Corpuscular Hgb Conc 33.3 g/dL (32-36); Mean Corpuscular Volume 88.1 fL (80-100); Mean Platelet Volume 11.4 fL (7.4-10.4); Platelet Count 268 K/uL (130-400); RDW Standard Deviation 41.8 fL (36.4-46.3); Red Blood Count 5.05 M/uL (4.7-6.1); White Blood Count 15.95 K/uL (4.8-10.8)
[2021-01-30 08:24] LABS: Albumin Level 3.2 gm/dl (3.4-5.0); BUN Creatinine Ratio 12.5 (10-20); Calcium 9.1 mg/dl (8.5-10.1); Creatinine Clr Calc Pharmacy 136.3 ml/min; Est GFR (African American) 123.1 ml/min; Est GFR (Non-African American) 106.2 ml/min; Potassium 4.1 mmol/L (3.5-5.1)
[2021-01-30 08:26] LABS: Bilirubin Direct 0.2 mg/dl (0-0.2); Bilirubin,Total 0.7 mg/dl (0.2-1); Total Protein 7.1 gm/dl (6.4-8.2)
[2021-01-30] MEDS: methylPREDNISolone 20 MG in SYRINGE 0 ML IV SCH ×2 (08:40→21:29)
--- NOTE | 2021-01-30 12:03 | Surgery Progress Note ---
Date of Service January 30, 2021 Assessment & Plan (1) SBO (small bowel obstruction): Clinically improving. We will keep him on clears until he has a bowel movement. We will continue to follow along Admission and Anticipated Discharge Date Admission Date: January 26, 2021 Subjective Patient feeling well. No pain or nausea since NG tube was removed. No bowel movement yet but he does feel like he is about to have one. He is tolerating clear liquids with no issue. Physical Exam Physical Exam: Alert and oriented no acute distress Abdomen is soft. Nontender. Positive bowel sounds. Results & Data ([facility]) Vital Signs (Past 12 Hours) Vital Signs Temp Pulse Resp BP Pulse Ox 01/30/21 07:30 36.6 C 59 L 18 133/78 99 PG Care Time/CCT Total # of Minutes Spent Total Time Spent with Patient: Total time spent is greater than 50% in coordination of care (as documented) at patient's floor/unit and/or counseling patient: Coding Level of Care Code 98145 Subseq Hosp Care Lvl 2 Diagnoses SBO (small bowel obstruction) K56.609
--- NOTE | 2021-01-30 15:35 | Hospitalist Progress Note ---
Date of Service January 30, 2021 Assessment & Plan (1) SBO (small bowel obstruction): Likely due to an inflammatory bowel disease -> Crohn's is a presumptive diagnosis, but not proven at this point. - Symptoms and KUB XR improving; passing gas, but no BM. - Continue clear liquids for now. - Continue methylprednisolone (2) Ileitis: As above; likely Crohn's disease. - Plan for colonoscopy as outpatient. (3) HTN (hypertension): BP is 135/80 today. - Hold lisinopril (4) Obesity: BMI 38. - Continue to work through PCP for risk reductions (5) DVT prophylaxis: SCDs - Holding heparin for positive Hemoccult test Admission and Anticipated Discharge Date Admission Date: January 26, 2021 Subjective Doing well today. No BM, but feels like things are moving. Reports no fevers/chills, chest pain, shortness of breath, abdominal pain, nausea, or vomiting. Physical Exam Constitutional: WD/WN, vitals as above Eyes: EOM intact bilaterally; no conjunctival abnormality ENMT: external ear and nose normal, oropharynx normal Neck: trachea midline, no thyromegaly normal visual inspection Respiratory: normal respiratory effort, lungs clear to auscultation no respiratory distress Cardiovascular: RRR, no murmur, no edema Gastrointestinal (Abdomen): Inspection/Auscultation: abdomen normal to inspection; abdomen not distended Musculoskeletal: no cyanosis or clubbing, extremities motor strength 5/5 Skin: no rashes, warm and dry Neurologic: moves all extremities and awake Psychiatric: Orientation: alert, oriented to person and cooperative Results & Data Results & Data ([facility]) Vital Signs (Past 12 Hours) Vital Signs Temp Pulse Resp BP Pulse Ox 01/30/21 07:30 36.6 C 59 L 18 133/78 99 PG Care Time/CCT Total # of Minutes Spent Total Time Spent with Patient: Total time spent is greater than 50% in coordination of care (as documented) at patient's floor/unit and/or counseling patient: Coding Level of Care Code 48694 Subseq Hosp Care Lvl 2 Diagnoses SBO (small bowel obstruction) K56.609 Ileitis K52.9 HTN (hypertension) I10 Hypertension type: unspecified Obesity E66.9 DVT prophylaxis Z29.9 (1) HTN (hypertension) Hypertension type: unspecified Qualified Code(s): I10 - Essential (primary) hypertension
[2021-01-30] MEDS ORDERED: ACETAMINOPHEN 325 MG TAB PO PRN (15:36)
[2021-01-30] MEDS: FAMOTIDINE 20 MG in SYRINGE 3 ML IV SCH (16:58)
--- NOTE | 2021-01-31 08:29 | Surgery Progress Note ---
Date of Service January 31, 2021 Assessment & Plan (1) Ileitis: Clinically improving. I believe he believes it taking clear liquids on an empty stomach may be making him nauseated and would like to try some real food. Since he is essentially asymptomatic and has had several bowel movements I think this is reasonable. We'll try a low fiber diet. No indications for surgery. We'll sign off. [facility] surgeons covering for the weekend if any questions or concerns. Admission and Anticipated Discharge Date Admission Date: January 26, 2021 Subjective Patient seen. Feeling well this morning. Had a small wave of nausea last night which has resolved. Denies pain. He did have 2 bowel movements yesterday. Physical Exam Physical Exam: Alert. No acute distress Abdomen is soft. Nontender. Distention at baseline per patient. Results & Data ([facility]) Vital Signs (Past 12 Hours) Vital Signs Temp Pulse Pulse Resp BP BP Pulse Ox 01/31/21 07:32 36.5 C 63 16 133/80 97 01/30/21 23:19 36.8 C 62 16 128/77 95 PG Care Time/CCT Total # of Minutes Spent Total Time Spent with Patient: Total time spent is greater than 50% in coordination of care (as documented) at patient's floor/unit and/or counseling patient: Coding Level of Care Code 91418 Subseq Hosp Care Lvl 2 Diagnoses Ileitis K52.9
[2021-01-31] MEDS: methylPREDNISolone 20 MG in SYRINGE 0 ML IV SCH (09:25)
--- NOTE | 2021-01-31 13:18 | Gastroenterology Progress Note ---
Date of Service January 31, 2021 Assessment & Plan (1) SBO (small bowel obstruction): (2) Ileitis: Pt is a 50 y.o. male with a history of chronic, intermittent abdominal pain admitted with terminal ileitis and SBO, concerning for Crohn's disease now with improved imaging. 1. Stable for discharge from GI perspective. 2. Recommend Prednisone 40 mg daily with plan to decrease by 5 mg weekly until complete. 3. Soft, regular diet. 4. Follow up in our office next week. Will discuss timing/scheduling of colonoscopy at that time. Thank you for allowing us to participate in the care of this pleasant patient. If you have any questions or concerns, please do not hesitate to contact us. Admission and Anticipated Discharge Date Admission Date: January 26, 2021 Supervising Physician Co-Signing Physician Notes Agree with BENEDICT nAtunez as above Abd: Soft, NT, ND, +BS Continue current therapy F/U as outpatient for further evaluation and recommendations. Subjective Patient is doing very well from a GI standpoint. Tolerating regular diet. No abdominal pain, nausea or vomiting. Verbalizes readiness for discharge. Review of Systems Review of Systems: All systems reviewed & are unremarkable except as noted in HPI & below Physical Exam Constitutional: WD/WN, vitals as above Respiratory: normal respiratory effort, lungs clear to auscultation Cardiovascular: RRR, no murmur, no edema Gastrointestinal (Abdomen): normal bowel sounds, soft, nontender, no hepatosplenomegaly Psychiatric: A+Ox3, euthymic affect Results & Data Results & Data ([facility]) Vital Signs (Past 12 Hours) Vital Signs Temp Pulse Resp BP Pulse Ox 01/31/21 07:32 36.5 C 63 16 133/80 97 PG Care Time/CCT Total # of Minutes Spent Total Time Spent with Patient: Total time spent is greater than 50% in coordination of care (as documented) at patient's floor/unit and/or counseling patient: Coding Level of Care Code 96947 Subseq Hosp Care Lvl 3 Diagnoses SBO (small bowel obstruction) K56.609 Ileitis K52.9
--- NOTE | 2021-01-31 17:16 | Discharge Summary ---
Date of Service January 31, 2021 Admission HPI Per Admitting Provider 50 YOM with past medical history of leukocytosis, myalgias, chronic abdominal pain, constipation, obesity and HTN, Gout. Patient reports that he has daily abdominal discomfort that will come and go in waves as sharp located to his bilateral upper quadrant. This is usually associated with some nausea and no vomiting. The patient endorses his last normal BM was probably last Wednesday [id number]. On he noticed that his abdomen discomfort was becoming more frequent and started with liquid stools. This calmed down a bit on Wednesday, he also started to get a little bit of his appetite back on Wednesday, so he attempted to eat dinner. Patient had increase in abdominal pain that progressed to nausea with vomiting at 2300 last night. He reports that he vomited three times last night, his reports this as brown with undigested food in it. No feculent smell or blood endorsed. In the ER the patient had a CT scan performed that indicated dilated and fluid filled loops of bowel with a transition point at the level of the ileum. Dr. Rodriguez from [facility] spoke with the General Surgeon Dr. Isabel, who requested Naso-Gastric tube decompression, bowel rest, NPO, IVF, broad spectrum antibiotics. He will be admitted to medical floor with the above, continue with the above. KUB in the morning. Lactate level pending. Patient endorses that he has had previous EGD and Colonoscopies performed with dillon taylor. No records for review. He also reports family history of this abdominal discomfort, constipation, diarrhea that was diagnosed as IBS. He has had his Leukocytosis worked up in the past with [facility] and viral panels and flow cytometry workups negative as well. Last GI review available from 2004 but unable to see results at this time. Principal Diagnosis Small bowel obstruction Inflammation of the terminal ileum -> Concern for IBD Discharge Exam Constitutional WD/WN, vitals as above Eyes EOM intact bilaterally; no conjunctival abnormality ENMT external ear and nose normal, oropharynx normal Neck trachea midline, no thyromegaly normal visual inspection Respiratory normal respiratory effort, lungs clear to auscultation no respiratory distress Cardiovascular RRR, no murmur, no edema Gastrointestinal (Abdomen) Inspection/Auscultation: abdomen normal to inspection; abdomen not distended Musculoskeletal no cyanosis or clubbing, extremities motor strength 5/5 Skin no rashes, warm and dry Neurologic moves all extremities and awake Psychiatric Orientation: alert, oriented to person and cooperative Discharge Data Allergies Allergy/AdvReac Type Severity Reaction Status Date / Time cheese Allergy Anaphylaxis Verified 01/29/21 15:57 lactose Allergy Anaphylaxis Verified 01/29/21 15:51 milk Allergy Anaphylaxis Verified 01/29/21 15:51 Milk Containing Products Allergy Anaphylaxis Verified 01/29/21 15:51 MILK,CATS Allergy Unknown SHORTNESS Uncoded 01/26/21 13:19 OF BREATH Consultations 01/26/21 13:47 ED Decision to Admit Stat 01/26/21 14:05 Consult General Surgery Stat 01/26/21 16:56 Consult General Surgery Routine 01/27/21 07:46 Consult Gastroenterology Routine 01/27/21 16:16 Consult Gastroenterology Routine Ordered Studies 01/26/21 12:22 CT abd pelvis IV con only Stat Hospital Course (1) SBO (small bowel obstruction): Likely due to an inflammatory bowel disease -> Crohn's is a presumptive diagnosis, but not proven at this point. - Symptoms and KUB XR improving; passing gas. - Had BM by 01/30 and was tolerating diet well. Cleared by GI and surgery for discharge. Steroid taper per GI recommendations. Should see GI next week to be sure he is still improving and to plan for colonoscopy. (2) Ileitis: As above; likely Crohn's disease. - Plan for colonoscopy as outpatient. (3) HTN (hypertension): BP is 135/80 today. - Restart lisinopril (4) Obesity: BMI 38. - Continue to work through PCP for risk reductions (5) DVT prophylaxis: SCDs - Holding heparin for positive Hemoccult test Total Time Total Time Spent Total Time Spent (In Minutes): 35 Discharge Plan Discharge Items Patient Disposition: Home - Self-Care Reason For Visit: SBO Discharge Diagnosis: Small bowel obstruction Activity: Resume your previous activity Non-emergency contact: Primary Care Provider and Acid Recovery Operator Call non-emergency contact if: your symptoms worsen Follow-up/Referrals: Arjun Ward DO [Physician] - 02/06/21 10:40 am (With Chiquita Bennett) Gladys Serrano CRNP [Primary Care Provider] - 02/10/21 1:10 pm ([facility] OFFICE WITH DR LEBLANC) Diet: Low Fiber Addtl Attending Provider Instructions: Mr. Morocho, You were admitted to the hospital with a small bowel obstruction. We were able to manage this conservatively (meaning, without surgery) which is great! By discharge, you were tolerating food quite well. We are sending you home with steroids. We have some concern that this issue is stemming from inflammation (irritation) of your small intestine. There is some concern this could be Crohn's disease or a similar inflammatory bowel disease, though we do not know for sure at this point because this requires a biopsy. Please see Dr. Ward or one of his GI colleagues in the next week to see how you are doing and discuss the timing of the colonoscopy. Please take the steroids as follows: Prednisone 40 mg (8 tablets) by mouth daily for 1 week (starting tomorrow, February 01) Prednisone 35 mg (7 tablets) by mouth daily for 1 week (starting February 01) Prednisone 30 mg (6 tablets) by mouth daily for 1 week (starting February 08) Prednisone 25 mg (5 tablets) by mouth daily for 1 week (starting February 15) Prednisone 20 mg (4 tablets) by mouth daily for 1 week (starting February 22) Prednisone 15 mg (3 tablets) by mouth daily for 1 week (starting March 01) Prednisone 10 mg (2 tablets) by mouth daily for 1 week (starting January) Prednisone 5 mg (1 tablet) by mouth daily for 1 week (starting March 15), then stop. By that point, you should have a diagnosis and alternative treatments arranged with the GI team. Please take the Zofran up to 4 times per day, but hopefully your nausea improves in the next few days to a week as your body heals. I also sent in an acid- blocking medication (pantoprazole) because the steroids can be hard on your stomach. If you start to have more pain, bloody stools, nausea, vomiting, fevers, chills, or any other concerning symptoms, please reach out to your PCP and GI doctors right away. Pending Studies at Discharge: No Stand-Alone Forms: My [employer], Smoking Cessation Medications and DC Order Prescriptions: New prednisone 5 mg tablet 40 mg PO DAILY Qty: 252 RF: 0 ondansetron 4 mg tablet,disintegrating 4 mg PO Q6H PRN (Reason: nausea and vomiting) Qty: 30 RF: 0 pantoprazole 20 mg tablet,delayed release (DR/EC) 20 mg PO DAILY 56 Days Qty: 56 RF: 0 Continued allopurinol [Zyloprim] 100 mg tablet 200 mg PO QAM RF: 0 lisinopril [Zestril] 10 mg tablet 10 mg PO QAM RF: 0 cholecalciferol (vitamin D3) [Vitamin D3] 125 mcg (5,000 unit) Tablet 125 mcg PO QDD RF: 0 Discharge Orders: Discharge Order (Routine); Ordered 01/31/21 Ordered By: Hans Kauffman/Other Patient Handouts: Small Bowel Obstruction, Controlling High Blood Pressure, Eating Heart-Healthy Foods Admission Data Admit Date/Time: 01/26/21 15:30 Attending Provider: Hans Rodrigez Admit Provider: Heriberto Cruz Primary Care Provider: Gladys Serrano Other Providers: Juan Isabel ; Heriberto Cruz ; Cruz Velásquez ; Matt Pugh ; Austyn Sher ; Luiz Watson Jr ; Omid Melo ; Paris Becerra ; Rudy Houston ; Reji Lamb ; Javier Felipe Other Interventions: Discharge Summary Assessment (RN) Last Done: 01/31/21 15:53 Coding Level of Care Code D/C Day Management >30 mins Diagnoses SBO (small bowel obstruction) K56.609 Ileitis K52.9 HTN (hypertension) I10 Hypertension type: unspecified Obesity E66.9 DVT prophylaxis Z29.9
== END 2021-01-31 16:55 | disposition home or self-care (01) | DRG 387 ==
LOC: ED 11:00 → SUATTDRO 15:30 → 3N 15:30